=== PATIENT | male | born 1990 | race American Indian/Alaskan Native ===

== ENCOUNTER 2021-08-24 11:57 | Inpatient (IN) | payer SELFPAY ==
--- NOTE | 2021-08-24 12:16 | Emergency Department Report ---
HPI - General Chief Complaint: Cardiac Arrest/CPR Time Seen by Provider: 08/24/21 12:05 - HPI HPI: Room 18 The patient is a 31-year-old male present with a chief complaint of cardiac arrest. Per EMS the patient exited his room and was witnessed to have quick jerking motions and then collapsed to the ground. EMS was called and responded found the patient unresponsive and in asystole. ACLS protocols were initiated the patient was intubated. EMS reports administering 3 rounds of epinephrine, 1 round of sodium bicarb and defibrillation x1 when the patient entered V. tach. There was return of spontaneous circulation prior to arrival in the ED. Per EMS the patient's Accu-Chek read "high" ED Past Medical Hx - Past Medical History Hx Hypertension: Yes Hx Diabetes: Yes Hx Renal Disease: Yes (ESRD) - Surgical History Additional Surgical History: Right chest Vas-Cath - Family History Family history: no significant - Social History Smoking Status: Unknown if ever smoked Substance Use Type: None ED Review of Systems ROS: Stated complaint: CARDIAC ARREST Other details as noted in HPI Comment: Unobtainable due to pts medical conditions Physical Exam - Physical Exam Vital Signs: Vital Signs 08/24/21 12:08 Pulse Rate 98 H Respiratory 16 Rate Blood Pressure 194/100 [Right] O2 Sat by Pulse 100 Oximetry Physical Exam: GENERAL: The patient is well-developed well-nourished male lying on stretcher unresponsive being bagged via ET tube. [] HEENT: Normocephalic. Atraumatic. Pupils 6 to 5 mm bilaterally NECK: Supple. Trachea midline CHEST/LUNGS: Clear to auscultation. There is no respiratory distress noted. Vas-Cath right chest HEART/CARDIOVASCULAR: Regular. There is no tachycardia. There is no gallop rub or murmur. ABDOMEN: Abdomen is soft, nontender. Patient has normal bowel sounds. There is no abdominal distention. SKIN: There is no rash. There is no edema. There is no diaphoresis. NEURO: GCS 3 T MUSCULOSKELETAL: There is no evidence of acute injury. ED Course Vital Signs 08/24/21 12:08 Pulse Rate 98 H Respiratory 16 Rate Blood Pressure 194/100 [Right] O2 Sat by Pulse 100 Oximetry ED Medical Decision Making - Lab Data Result diagrams: 08/24/21 14:42 08/24/21 14:42 - EKG Data -: EKG Interpreted by Me EKG shows normal: sinus rhythm Rate: tachycardia (101 bpm) - EKG Data When compared to previous EKG there are: previous EKG unavailable Interpretation: nonspecific ST-T wave dylan (ST depression in leads V5, V6. T wave inversion in leads I, aVL, V6) - Radiology Data Radiology results: report reviewed (CT head, chest x-ray), image reviewed (CT head, chest x-ray) interpreted by me: Chest x-ray-ET tube in appropriate position. No definite focal infiltrates. No pneumothorax [facility] [address] [place] [address] Cat Scan Report Signed Patient: NORA BUSCH MR#: [id number] 5 : 1990 Acct:[id number] Age/Sex: 31 / M ADM Date: 08/24/21 Loc: ED Attending Dr: Ordering Physician: DAINA MARSH MD Date of Service: 08/24/21 Procedure(s): CT head/brain wo con Accession Number(s): [id number] cc: DAINA MARSH MD CT HEAD WITHOUT CONTRAST INDICATION / CLINICAL INFORMATION: Status post collapse and cardiac arrest. TECHNIQUE: Axial imaging performed from the skull apex through the skull base without the use of contrast. Sagittal and coronal reformatted images. All CT scans at this location are performed using CT dose reduction for ALARA by means of automated exposure control. COMPARISON: None available. FINDINGS: CEREBRAL PARENCHYMA: No significant abnormality. No acute territorial infarct. No convincing findings of diffuse anoxic injury on noncontrast CT. HEMORRHAGE: None. EXTRA-AXIAL SPACES: Normal in size and morphology for the patient's age. VENTRICULAR SYSTEM: Normal in size and morphology for the patient's age. MIDLINE SHIFT OR HERNIATION: None. CEREBELLUM / BRAINSTEM: No significant abnormality. CALVARIUM: No significant abnormality. ORBITS: Normal as visualized. PARANASAL SINUSES / MASTOID AIR CELLS: Normal as visualized. SOFT TISSUES of HEAD: No significant abnormality. ADDITIONAL FINDINGS: None. IMPRESSION: No acute intracranial abnormality. If further evaluation is needed, MRI could be obtained. Signer Name: Matt Hood Jr, MD Signed: 08/24/2021 12:46 PM Workstation Name: [id number] Transcribed By: TTR Dictated By: MATT HOOD JR, MD Electronically Authenticated By: MATT HOOD JR, MD Signed Date/Time: 08/24/21 1246 DD/ 1245 TD/TT: Print Cancel [facility] [address] [place] [address] XRay Report Signed Patient: NORA BUSCH MR#: [id number] 5 : 1990 Acct:[id number] Age/Sex: 31 / M ADM Date: 08/24/21 Loc: ED Attending Dr: Ordering Physician: DAINA MARSH MD Date of Service: 08/24/21 Procedure(s): XR chest 1V ap Accession Number(s): [id number] cc: DAINA MARSH MD Fluoro Time In Minutes: CHEST 1 VIEW INDICATION: Cardiac arrest status post intubation. COMPARISON: None FINDINGS: SUPPORT DEVICES: Endotracheal tube just below the level the clavicles and right IJ PermCath with tip in the mid right atrium. HEART: Mild cardiomegaly. LUNGS/PLEURA: Minimal edema noted with no consolidation, effusion, or pneumothorax. ADDITIONAL FINDINGS: None. IMPRESSION: 1. Lung findings and support devices as above. Signer Name: Yoshi Cha MD Signed: 08/24/2021 1:10 PM Workstation Name: [id number] Transcribed By: JOSELITO Dict ated By: Yoshi Cha MD Electronically Authenticated By: Yoshi Cha MD Signed Date/Time: 08/24/21 1310 DD/ 1309 TD/TT: Print Cancel - Differential Diagnosis Cardiac arrest Critical care attestation.: If time is entered above; I have spent that time in minutes in the direct care of this critically ill patient, excluding procedure time. ED Disposition Clinical Impression: Cardiac arrest, DKA (diabetic ketoacidosis), Rhabdomyolysis Disposition: ADMITTED INPATIENT Is pt being admited?: Yes Does the pt Need Aspirin: Yes Condition: Serious Instructions: Diabetic Ketoacidosis (ED) Referrals: PRIMARY CARE, [Primary Care Provider] - 3-5 Days Time of Disposition: 15:36 (Hospitalist called (Dr. Serra))
--- NOTE | 2021-08-24 12:50 | Cat Scan Report ---
CT HEAD WITHOUT CONTRAST INDICATION / CLINICAL INFORMATION: Status post collapse and cardiac arrest. TECHNIQUE: Axial imaging performed from the skull apex through the skull base without the use of cont rast. Sagittal and coronal reformatted images. All CT scans at this location are performed using CT dose reduction for ALARA by means of automated exposure control. COMPARISON: None available. FINDINGS: CEREBRAL PARENCHYMA: No significant abnormality. No acute territorial infarct. No convincing findings of diffuse anoxic injury on noncontrast CT. HEMORRHAGE: None. EXTRA-AXIAL SPACES: Normal in size and morphology for the patient's age. VENTRICULAR SYSTEM: Normal in size and morphology for the patient's age. MIDLINE SHIFT OR HERNIATION: None. CEREBELLUM / BRAINSTEM: No significant abnormality. CALVARIUM: No significant abnormality. ORBITS: Normal as visualized. PARANASAL SINUSES / MASTOID AIR CELLS: Normal as visualized. SOFT TISSUES of HEAD: No significant abnormality. ADDITIONAL FINDINGS: None. IMPRESSION: No acute intracranial abnormality. If further evaluation is needed, MRI could be obtained. Signer Name: Matt Hood Jr, MD Signed: 08/24/2021 12:46 PM Workstation Name: [id number]
--- NOTE | 2021-08-24 13:14 | XRay Report ---
CHEST 1 VIEW INDICATION: Cardiac arrest status post intubation. COMPARISON: None FINDINGS: SUPPORT DEVICES: Endotracheal tube just below the level the clavicles and right IJ PermCath with tip in the mid right atrium. HEART: Mild cardiomegaly. LUNGS/PLEURA: Minimal edema noted with no consolidation, effusion, or pneumothorax. ADDITIONAL FINDINGS: None. IMPRESSION: 1. Lung findings and support devices as above. Signer Name: Yoshi Cha MD Signed: 08/24/2021 1:10 PM Workstation Name: [id number]
[2021-08-24] MEDS: NORepinephrine/NS 8 MG-250 ML 8 MG/250 ML INFUS..BTL IV SCH (14:06)
[2021-08-24] MEDS ORDERED: DOPamine 800 MG/D5W 250ML 800 MG/250 ML BAG IV ONE (14:57)
[2021-08-24 15:03] LABS: Mean Corpuscular HGB Conc 27 % (32-34); Mean Corpuscular Volume 98 fl (84-94); Platelet Count 270 K/mm3 (140-440); Red Blood Count 4.15 M/mm3 (3.65-5.03); Red Cell Distribution Width 17.3 % (13.2-15.2)
[2021-08-24 15:14] LABS: Hemoglobin 10.9 gm/dl (11.8-15.2)
[2021-08-24 15:15] LABS: Hematocrit 40.6 % (35.5-45.6)
[2021-08-24 15:19] LABS: Albumin 2.9 g/dL (3.9-5); Calcium 7.6 mg/dL (8.4-10.2); Creatine Kinase MB 12.4 ng/mL (0.0-4.0)
[2021-08-24] MEDS ORDERED: PIPERACIL-TAZO 2.25 GM/50 ML 2.25 GM/50 ML BAG IV ONE (15:27)
[2021-08-24 15:31] LABS: Free T4 (Free Thyroxine) 1.35 ng/dL (0.76-1.46)
[2021-08-24] MEDS ORDERED: ASPIRIN 300 MG RECT SUPP PR ONE (15:32)
[2021-08-24 16:02] LABS: Chol/HDL Ratio 3.42 %
[2021-08-24 16:28] LABS: ABG Methemoglobin 0.6 % (0.0-1.5); ABG Oxygen Saturation 99.7 % (95.0-99.0)
[2021-08-24] MEDS: INSULIN REGULAR, HUMAN 100 UNITS in SODIUM CHLORIDE 0.9% 99 ML IV SCH ×2 (16:33→23:11)
[2021-08-24 16:36] LABS: ABG Base Excess -17.2 mmol/L (-2.0-3.0); ABG HCO3 10.8 mmol/L (20.0-26.0); ABG PCO2 33.3 mm Hg
[2021-08-24 16:40] LABS: Calcium 7.9 mg/dL (8.4-10.2)
[2021-08-24 16:47] LABS: ABG PH 7.128 pH Units (7.350-7.450); ABG PO2 301.3 mm Hg (80.0-90.0)
[2021-08-24 18:45] LABS: Band Neutrophils # (Manual) 0.6 K/mm3; Eosinophils % (Manual) 0 % (0.0-4.3); Myelocytes # (Manual) 0.2 K/mm3; Total Cells Counted 100
[2021-08-24 18:46] LABS: Burr Cells 1+; Platelet Estimate Consistent w Auto
[2021-08-24] MEDS ORDERED: EPINEPHrine 1 MG/10 ML SYRINGE ONE (19:00)
[2021-08-24] MEDS ORDERED: DOPamine DRIP 800 MG/D5W 250ML PreMix IV ONE (19:00)
[2021-08-24 19:38] LABS: INR 1.06 (0.87-1.13)
[2021-08-24 19:39] LABS: Partial Thromboplastin Time 28.6 Sec. (24.2-36.6)
--- NOTE | 2021-08-24 19:40 | History and Physical Report ---
History of Present Illness Date of examination: 08/24/21 Date of admission: 08/24/2021 Chief complaint: S/p cardiac arrest History of present illness: The patient is a 31-year-old male present with a chief complaint of cardiac arrest. Per EMS the patient exited his room and was witnessed to have quick jerking motions and then collapsed to the ground. EMS was called and responded found the patient unresponsive and in asystole. ACLS protocols were initiated the patient was intubated. EMS reports administering 3 rounds of epinephrine, 1 round of sodium bicarb and defibrillation x1 when the patient entered V. tach. There was return of spontaneous circulation prior to arrival in the ED. Per EMS the patient's Accu-Chek read "high" - Past Medical History --Hypertension: Yes --Diabetes: Yes --Renal Disease: Yes (ESRD) - Surgical History Additional Surgical History: Right chest Vas-Cath - Family History Family history: no significant - Social History Smoking Status: Unknown if ever smoked Substance Use Type: None Review of Systems ROS: Stated complaint: CARDIAC ARREST Other details as noted in HPI Comment: Unobtainable due to pts medical conditions Medications and Allergies Allergies Allergy/AdvReac Type Severity Reaction Status Date / Time codeine Allergy Unknown Unknown Verified 08/24/21 16:01 Active Meds: Active Medications NORepinephrine/NS 8 MG-250 ML (Norepinephrine/Ns 8 Mg-250 Ml (Double Conc)) 8 mg in 250 mls @ 11.25 mls/hr IV TITRATE MARCIA; Protocol Last Titration: 08/24/21 17:39 Dose: Infused Dopamine HCl/Dextrose (Dopamine 800 Mg/D5w 250ml) 800 mg in 250 mls @ 2.296 mls/hr IV TITR ONE; Protocol Stop: 08/29/21 03:50 Last Titration: 08/24/21 17:43 Dose: Infused Insulin Human Regular 100 (units/ Sodium Chloride) 100 mls @ 8 mls/hr IV TITR MARCIA; Protocol Last Titration: 08/24/21 18:37 Dose: 8 units/hr, 8 mls/hr Exam - Physical Exam Narrative exam: Patient intubated and on ventilator - Constitutional Vitals: Temp Pulse Resp BP Pulse Ox 94.9 F L 81 6 L 171/98 100 08/24/21 14:23 08/24/21 18:15 08/24/21 18:15 08/24/21 18:15 08/24/21 18:15 General appearance: Present: severe distress, well-nourished - EENT Eyes: Present: PERRL ENT: hearing intact, clear oral mucosa - Neck Neck: Present: supple, normal ROM - Respiratory Respiratory effort: normal Respiratory: bilateral: CTA - Cardiovascular Heart rate: 78 Rhythm: regular Heart Sounds: Present: S1 & S2. Absent: rub, click - Extremities Extremities: pulses symmetrical, No edema Peripheral Pulses: within normal limits - Abdominal General gastrointestinal: Present: soft, non-tender, non-distended, normal bowel sounds Male genitourinary: Present: normal - Integumentary Integumentary: Present: clear, warm, dry - Musculoskeletal Musculoskeletal: generalized weakness - Psychiatric Psychiatric: other (Patient intubated) - Neurologic Neurologic: other (Patient intubated) - Allied Health Allied health notes reviewed: nursing, case management HEART Score - HEART Score Troponin: Troponin T 0.215 ng/mL (0.00-0.029) H* 08/24/21 14:42 Results - Labs CBC & Chem 7: 08/25/21 03:53 08/25/21 03:53 Labs: Laboratory Last Values WBC 21.5 K/mm3 (4.5-11.0) H 08/24/21 14:42 RBC 4.15 M/mm3 (3.65-5.03) 08/24/21 14:42 Hgb 10.9 gm/dl (11.8-15.2) L 08/24/21 14:42 Hct 40.6 % (35.5-45.6) 08/24/21 14:42 MCV 98 fl (84-94) H 08/24/21 14:42 MCH 26 pg (28-32) L 08/24/21 14:42 MCHC 27 % (32-34) L 08/24/21 14:42 RDW 17.3 % (13.2-15.2) H 08/24/21 14:42 Plt Count 270 K/mm3 (140-440) 08/24/21 14:42 Add Manual Diff Complete 08/24/21 14:42 Total Counted 100 08/24/21 14:42 Seg Neuts % (Manual) 90.0 % (40.0-70.0) H 08/24/21 14:42 Band Neutrophils % 3.0 % 08/24/21 14:42 Lymphocytes % (Manual) 4.0 % (13.4-35.0) L 08/24/21 14:42 Reactive Lymphs % (Man) 0 % 08/24/21 14:42 Monocytes % (Manual) 1.0 % (0.0-7.3) 08/24/21 14:42 Eosinophils % (Manual) 0 % (0.0-4.3) 08/24/21 14:42 Basophils % (Manual) 1.0 % (0.0-1.8) 08/24/21 14:42 Metamyelocytes % 0 % 08/24/21 14:42 Myelocytes % 1.0 % 08/24/21 14:42 Promyelocytes % 0 % 08/24/21 14:42 Blast Cells % 0 % 08/24/21 14:42 Nucleated RBC % Not Reportable 08/24/21 14:42 Seg Neutrophils # Man 19.4 K/mm3 (1.8-7.7) H 08/24/21 14:42 Band Neutrophils # 0.6 K/mm3 08/24/21 14:42 Lymphocytes # (Manual) 0.9 K/mm3 (1.2-5.4) L 08/24/21 14:42 Abs React Lymphs (Man) 0.0 K/mm3 08/24/21 14:42 Monocytes # (Manual) 0.2 K/mm3 (0.0-0.8) 08/24/21 14:42 Eosinophils # (Manual) 0.0 K/mm3 (0.0-0.4) 08/24/21 14:42 Basophils # (Manual) 0.2 K/mm3 (0.0-0.1) H 08/24/21 14:42 Metamyelocytes # 0.0 K/mm3 08/24/21 14:42 Myelocytes # 0.2 K/mm3 08/24/21 14:42 Promyelocytes # 0.0 K/mm3 08/24/21 14:42 Blast Cells # 0.0 K/mm3 08/24/21 14:42 WBC Morphology Not Reportable 08/24/21 14:42 Hypersegmented Neuts Not Reportable 08/24/21 14:42 Hyposegmented Neuts Not Reportable 08/24/21 14:42 Hypogranular Neuts Not Reportable 08/24/21 14:42 Smudge Cells Not Reportable 08/24/21 14:42 Toxic Granulation Not Reportable 08/24/21 14:42 Toxic Vacuolation Not Reportable 08/24/21 14:42 Dohle Bodies Not Reportable 08/24/21 14:42 Pelger-Huet Anomaly Not Reportable 08/24/21 14:42 Joseluis Rods Not Reportable 08/24/21 14:42 Platelet Estimate Consistent w auto 08/24/21 14:42 Clumped Platelets Not Reportable 08/24/21 14:42 Plt Clumps, EDTA Not Reportable 08/24/21 14:42 Large Platelets Not Reportable 08/24/21 14:42 Giant Platelets Not Reportable 08/24/21 14:42 Platelet Satelliting Not Reportable 08/24/21 14:42 Plt Morphology Comment Not Reportable 08/24/21 14:42 RBC Morphology Not Reportable 08/24/21 14:42 Dimorphic RBCs Not Reportable 08/24/21 14:42 Polychromasia Not Reportable 08/24/21 14:42 Hypochromasia Not Reportable 08/24/21 14:42 Poikilocytosis Not Reportable 08/24/21 14:42 Anisocytosis Not Reportable 08/24/21 14:42 Microcytosis Not Reportable 08/24/21 14:42 Macrocytosis Not Reportable 08/24/21 14:42 Spherocytes Not Reportable 08/24/21 14:42 Pappenheimer Bodies Not Reportable 08/24/21 14:42 Sickle Cells Not Reportable 08/24/21 14:42 Target Cells Not Reportable 08/24/21 14:42 Tear Drop Cells Not Reportable 08/24/21 14:42 Ovalocytes Not Reportable 08/24/21 14:42 Helmet Cells Not Reportable 08/24/21 14:42 [place] Bodies Not Reportable 08/24/21 14:42 Excel Rings Not Reportable 08/24/21 14:42 Kris Cells 1+ 08/24/21 14:42 Bite Cells Not Reportable 08/24/21 14:42 Crenated Cell Not Reportable 08/24/21 14:42 Elliptocytes Not Reportable 08/24/21 14:42 Acanthocytes (Spur) Not Reportable 08/24/21 14:42 Rouleaux Not Reportable 08/24/21 14:42 Hemoglobin C Crystals Not Reportable 08/24/21 14:42 Schistocytes Not Reportable 08/24/21 14:42 Malaria parasites Not Reportable 08/24/21 14:42 Marv Bodies Not Reportable 08/24/21 14:42 Hem Pathologist Commnt No 08/24/21 14:42 ABG pH 7.128 pH Units (7.350-7.450) L* 08/24/21 16:04 ABG pCO2 33.3 mm Hg 08/24/21 16:04 ABG pO2 301.3 mm Hg (80.0-90.0) H 08/24/21 16:04 ABG HCO3 10.8 mmol/L (20.0-26.0) L 08/24/21 16:04 ABG O2 Saturation 99.7 % (95.0-99.0) H 08/24/21 16:04 ABG O2 Content 16.3 (0.0-44) 08/24/21 16:04 ABG Base Excess -17.2 mmol/L (-2.0-3.0) L 08/24/21 16:04 ABG Hemoglobin 11.8 gm/dl (14.0-18.0) L 08/24/21 16:04 ABG Carboxyhemoglobin 1.4 % (0.0-5.0) 08/24/21 16:04 ABG Methemoglobin 0.6 % (0.0-1.5) 08/24/21 16:04 VBG pH 7.037 (7.320-7.420) L* 08/24/21 14:42 Oxyhemoglobin 97.7 % (95.0-99.0) 08/24/21 16:04 FiO2 100 % 08/24/21 16:04 Sodium 126 mmol/L (137-145) L 08/24/21 16:07 Potassium 5.1 mmol/L (3.6-5.0) H 08/24/21 16:07 Chloride 79.2 mmol/L (98-107) L 08/24/21 16:07 Carbon Dioxide 9 mmol/L (22-30) L* 08/24/21 16:07 Anion Gap 43 mmol/L 08/24/21 16:07 BUN 21 mg/dL (9-20) H 08/24/21 16:07 Creatinine 5.0 mg/dL (0.8-1.3) H 08/24/21 16:07 Estimated GFR 17 ml/min 08/24/21 16:07 BUN/Creatinine Ratio 4 % 08/24/21 16:07 Glucose 1217 mg/dL (75-100) H* 08/24/21 16:07 POC Glucose > 600 mg/dL (70-105) H 08/24/21 18:33 Calcium 7.9 mg/dL (8.4-10.2) L 08/24/21 16:07 Phosphorus 9.20 mg/dL (2.5-4.5) H 08/24/21 16:07 Magnesium 2.50 mg/dL (1.7-2.3) H 08/24/21 14:42 Total Bilirubin 0.60 mg/dL (0.1-1.2) 08/24/21 14:42 AST 138 units/L (5-40) H 08/24/21 14:42 ALT 52 units/L (7-56) 08/24/21 14:42 Alkaline Phosphatase 266 units/L (35-129) H 08/24/21 14:42 Total Creatine Kinase 1272 units/L (55-170) H 08/24/21 14:42 CK-MB (CK-2) 12.4 ng/mL (0.0-4.0) H 08/24/21 14:42 CK-MB (CK-2) Rel Index 0.9 (0-4) 08/24/21 14:42 Troponin T 0.215 ng/mL (0.00-0.029) H* 08/24/21 14:42 Total Protein 5.8 g/dL (6.3-8.2) L 08/24/21 14:42 Albumin 2.9 g/dL (3.9-5) L 08/24/21 14:42 Albumin/Globulin Ratio 1.0 % 08/24/21 14:42 Triglycerides 196 mg/dL (2-149) H 08/24/21 14:42 Cholesterol 209 mg/dL (50-199) H 08/24/21 14:42 LDL Cholesterol Direct 118 mg/dL (50-130) 08/24/21 14:42 HDL Cholesterol 61 mg/dL (40-59) H 08/24/21 14:42 Cholesterol/HDL Ratio 3.42 % 08/24/21 14:42 TSH 12.910 mlU/mL (0.270-4.200) H 08/24/21 14:42 Free T4 1.35 ng/dL (0.76-1.46) 08/24/21 14:42 Assessment and Plan Assessment and plan: Critical care statement The high probability OF a clinically significant sudden or life-threatening deterioration of the cardiorespiratory system and endocrine system required my full and direct attention, intervention and postoperative management. The aggregate critical care time was 40 minutes. The time is in addition to time spent performing reported procedures but includes the followin: Data review and interpretation 2: Patient assessment and monitoring of vital signs 3: Documentation 4:: Medication orders and management Advance Directives: Yes (Full code) VTE prophylaxis?: Chemical Plan of care discussed with patient/family: Yes - Patient Problems (1) Cardiac arrest Current Visit: Yes Status: Acute Plan to address problem: Patient arrived Anoxic encephalopathy is a possibility Continue vent support Data Integration Architect consult (2) Acute respiratory failure with hypoxia Current Visit: Yes Status: Acute Plan to address problem: Continue vent support and antibiotics and duo nebs and steroids (3) DKA (diabetic ketoacidosis) Current Visit: Yes Status: Acute Qualifiers: Diabetes mellitus type: type 1 Plan to address problem: DKA protocol IV insulin IV fluids Supplement potassium as necessary (4) Hyponatremia Current Visit: Yes Status: Acute Plan to address problem: Secondary to high blood glucose levels Pseudohyponatremia (5) Metabolic acidosis Current Visit: Yes Status: Acute Plan to address problem: Secondary to DKA Sodium bicarbonate as necessary (6) Elevated TSH Current Visit: Yes Status: Acute Plan to address problem: Thyroid profile requested (7) DVT prophylaxis Current Visit: Yes Status: Acute Plan to address problem: On anticoagulation GI prophylaxis
[2021-08-24] MEDS ORDERED: MORPHINE 2 MG/1 ML INJ IV PRN (19:41)
[2021-08-24] MEDS ORDERED: HYDROmorphone 1 MG/1 ML INJ IV PRN (19:41)
[2021-08-24] MEDS ORDERED: ONDANSETRON 4 MG/2 ML INJ IV PRN (19:41)
[2021-08-24] MEDS ORDERED: ACETAMINOPHEN 325 MG TAB PO PRN (19:41)
[2021-08-24] MEDS ORDERED: SODIUM CHLORIDE 0.9% 1000 ML 1,000 ML IV SCH (19:45)
[2021-08-24 19:48] LABS: Calcium 7.7 mg/dL (8.4-10.2)
[2021-08-24] MEDS ORDERED: HEPARIN 5,000 UNIT/1 ML VIAL SUB-Q SCH (22:00)
[2021-08-25 00:32] LABS: INR 1.12 (0.87-1.13)
[2021-08-25 00:33] LABS: Partial Thromboplastin Time 29.2 Sec. (24.2-36.6)
[2021-08-25 00:46] LABS: Creatine Kinase MB 27.1 ng/mL (0.0-4.0)
[2021-08-25 00:47] LABS: Calcium 7.7 mg/dL (8.4-10.2)
[2021-08-25 04:23] LABS: Hematocrit 32.7 % (35.5-45.6); Hemoglobin 10.3 gm/dl (11.8-15.2); Mean Corpuscular HGB Conc 31 % (32-34); Mean Corpuscular Volume 87 fl (84-94); Platelet Count 192 K/mm3 (140-440); Red Blood Count 3.75 M/mm3 (3.65-5.03); Red Cell Distribution Width 16.7 % (13.2-15.2)
[2021-08-25 04:39] LABS: Creatine Kinase MB 33.5 ng/mL (0.0-4.0)
[2021-08-25 04:44] LABS: Albumin 2.7 g/dL (3.9-5); Calcium 7.8 mg/dL (8.4-10.2)
[2021-08-25 05:07] LABS: ABG Base Excess -2.2 mmol/L (-2.0-3.0); ABG HCO3 20.9 mmol/L (20.0-26.0); ABG Methemoglobin 0.4 % (0.0-1.5); ABG Oxygen Saturation 98.2 % (95.0-99.0); ABG PH 7.461 pH Units (7.350-7.450)
[2021-08-25 05:51] LABS: Basophils % (Manual) 0 % (0.0-1.8); Eosinophils % (Manual) 0 % (0.0-4.3); Total Cells Counted 100
[2021-08-25 05:54] LABS: Anisocytosis 1+; Platelet Estimate Consistent w Auto
[2021-08-25 08:19] LABS: Calcium 7.9 mg/dL (8.4-10.2)
--- NOTE | 2021-08-25 08:34 | Progress Note ---
Assessment and Plan Assessment and plan: History of present illness: The patient is a 31-year-old male present with a chief complaint of cardiac arrest. Per EMS the patient exited his room and was witnessed to have quick jerking motions and then collapsed to the ground. EMS was called and responded found the patient unresponsive and in asystole. ACLS protocols were initiated the patient was intubated. EMS reports administering 3 rounds of epinephrine, 1 round of sodium bicarb and defibrillation x1 when the patient entered V. tach. There was return of spontaneous circulation prior to arrival in the ED. Per EMS the patient's Accu-Chek read "high" Admitted to ICU for acute hypoxic respiratory failure, cardiac arrest, DKA. NOK: Rupal Castillo [phone] (spouse) Hospital course: 08/25: Requiring MV support. mental status of concern after suspected prolonged down time. Last BG in 400's. D/w RN to aggressively replace K, once K > 3.3, can restart IV insulin. Volume depleted, 3 L NS ordered. Continue 1/2NS w/K infusion. Spoke with Rupal Castillo at length of clinical progress and plan for today. Assessment and Plan #Cardiac arrest - Unclear inciting event...possibly hypokalemia and DKA. - Patient was pulseless upon ems arrival and had coded multiple times in ED per reports. - Anoxic encephalopathy is a possibility- suspect prolonged downtime - Elevated troponin, likely from CPR, multiple arrests - ECHO ordered - UDS pending - Continue vent support - [employer] consult - Cardiology consultation #Acute respiratory failure with hypoxia Continue vent support and antibiotics and duo nebs and steroids CXR normal study PCCM following #Diabetic ketoacidosis - ph: 7.128, A, BG >1000 on admission, - DKA protocol: IV insulin, IVF. - NPO until AG closes - once AG closed (< 14), can start lantus 10 mg subq. Please run insulin gtt 1hr after lantus admin. - accuchecks q1 hr until AG closed - BMP q4hr until AG closed #Hypokalemia - 2.5 currently - continue aggressive replacement #Acute encephalopthy - discontinue sedation. - concern with brain anoxia - admission CT brain: no intracranial abnl - repeat CT brain for tomorrow pending - UDS pending #ESRD on HD - cr : 5.3 on admission labs - per reports had just started HD in may - strict I/O via almeida - avoid nephrotoxic agents, renal adjustments of meds. - nephrology consulted. #Hyponatremia Secondary to high blood glucose levels and volume depletion - Pseudohyponatremia - IVF bolus x 3 #Metabolic acidosis Multifactorial, respiratory failure + DKA Sodium bicarbonate as necessary (6) Elevated TSH Thyroid profile requested (7) DVT prophylaxis On anticoagulation GI prophylaxis The high probability of a clinically significant, sudden or life threatening deterioration of the [multi] system(s) required my full and direct attention, intervention and personal management. The aggregate critical care time was [90] minutes. This time is in addition to time spent performing reported procedures but includes the following: [x] Data Review and interpretation [x] Patient assessment and monitoring of vital signs [x] Documentation [x] Medication orders and management History Interval history: Intubated and sedated. No neurological response off of sedation. Hospitalist Physical - Physical exam Narrative exam: Physical Exam: VITAL SIGNS: Reviewed. GENERAL: The patient appears normally developed, Vital signs as documented. intubated and sedated. HEAD: No signs of head trauma. EYES: Pupils are equal. Extraocular motions intact. EARS: Hearing grossly intact. MOUTH: Oropharynx is normal. NECK: No adenopathy, no JVD. CHEST: Chest with clear breath sounds bilaterally. No wheezes, rales, or rhonchi. CARDIAC: Regular rate and rhythm. S1 and S2, without murmurs, gallops, or rubs. VASCULAR: No Edema. Peripheral pulses normal and equal in all extremities. ABDOMEN: Soft, non tender and non distended. No rebound or guarding, and no masses palpated. Bowel Sounds normal. MUSCULOSKELETAL: no obvious abnormalities noted. NEUROLOGIC EXAM: sedated PSYCHIATRIC: sedated SKIN: detail exam as documented in skin assessment - Constitutional Vitals: Temp Pulse Resp BP Pulse Ox 98.8 F 57 L 20 149/92 100 08/25/21 05:00 08/25/21 05:16 08/25/21 05:16 08/25/21 05:16 08/25/21 05:16 General appearance: Present: severe distress, well-nourished HEART Score - HEART Score Troponin: Troponin T 0.356 ng/mL (0.00-0.029) H* 08/25/21 03:53 Results - Labs CBC & Chem 7: 08/25/21 03:53 08/25/21 07:47 Labs: Laboratory Last Values WBC 11.4 K/mm3 (4.5-11.0) H 08/25/21 03:53 RBC 3.75 M/mm3 (3.65-5.03) 08/25/21 03:53 Hgb 10.3 gm/dl (11.8-15.2) L 08/25/21 03:53 Hct 32.7 % (35.5-45.6) L D 08/25/21 03:53 MCV 87 fl (84-94) 08/25/21 03:53 MCH 27 pg (28-32) L 08/25/21 03:53 MCHC 31 % (32-34) L 08/25/21 03:53 RDW 16.7 % (13.2-15.2) H 08/25/21 03:53 Plt Count 192 K/mm3 (140-440) 08/25/21 03:53 Add Manual Diff Complete 08/25/21 03:53 Total Counted 100 08/25/21 03:53 Seg Neutrophils % [employer] Operator 08/25/21 03:53 Seg Neuts % (Manual) 87.0 % (40.0-70.0) H 08/25/21 03:53 Band Neutrophils % 0 % 08/25/21 03:53 Lymphocytes % (Manual) 9.0 % (13.4-35.0) L 08/25/21 03:53 Reactive Lymphs % (Man) 0 % 08/25/21 03:53 Monocytes % (Manual) 4.0 % (0.0-7.3) 08/25/21 03:53 Eosinophils % (Manual) 0 % (0.0-4.3) 08/25/21 03:53 Basophils % (Manual) 0 % (0.0-1.8) 08/25/21 03:53 Metamyelocytes % 0 % 08/25/21 03:53 Myelocytes % 0 % 08/25/21 03:53 Promyelocytes % 0 % 08/25/21 03:53 Blast Cells % 0 % 08/25/21 03:53 Nucleated RBC % Not Reportable 08/25/21 03:53 Seg Neutrophils # Man 9.9 K/mm3 (1.8-7.7) H 08/25/21 03:53 Band Neutrophils # 0.0 K/mm3 08/25/21 03:53 Lymphocytes # (Manual) 1.0 K/mm3 (1.2-5.4) L 08/25/21 03:53 Abs React Lymphs (Man) 0.0 K/mm3 08/25/21 03:53 Monocytes # (Manual) 0.5 K/mm3 (0.0-0.8) 08/25/21 03:53 Eosinophils # (Manual) 0.0 K/mm3 (0.0-0.4) 08/25/21 03:53 Basophils # (Manual) 0.0 K/mm3 (0.0-0.1) 08/25/21 03:53 Metamyelocytes # 0.0 K/mm3 08/25/21 03:53 Myelocytes # 0.0 K/mm3 08/25/21 03:53 Promyelocytes # 0.0 K/mm3 08/25/21 03:53 Blast Cells # 0.0 K/mm3 08/25/21 03:53 WBC Morphology Not Reportable 08/25/21 03:53 Hypersegmented Neuts Not Reportable 08/25/21 03:53 Hyposegmented Neuts Not Reportable 08/25/21 03:53 Hypogranular Neuts Not Reportable 08/25/21 03:53 Smudge Cells Not Reportable 08/25/21 03:53 Toxic Granulation Not Reportable 08/25/21 03:53 Toxic Vacuolation Not Reportable 08/25/21 03:53 Dohle Bodies Not Reportable 08/25/21 03:53 Pelger-Huet Anomaly Not Reportable 08/25/21 03:53 Joseluis Rods Not Reportable 08/25/21 03:53 Platelet Estimate Consistent w auto 08/25/21 03:53 Clumped Platelets Not Reportable 08/25/21 03:53 Plt Clumps, EDTA Not Reportable 08/25/21 03:53 Large Platelets Not Reportable 08/25/21 03:53 Giant Platelets Not Reportable 08/25/21 03:53 Platelet Satelliting Not Reportable 08/25/21 03:53 Plt Morphology Comment Not Reportable 08/25/21 03:53 RBC Morphology Not Reportable 08/25/21 03:53 Dimorphic RBCs Not Reportable 08/25/21 03:53 Polychromasia Not Reportable 08/25/21 03:53 Hypochromasia Not Reportable 08/25/21 03:53 Poikilocytosis Not Reportable 08/25/21 03:53 Anisocytosis 1+ 08/25/21 03:53 Microcytosis Not Reportable 08/25/21 03:53 Macrocytosis Not Reportable 08/25/21 03:53 Spherocytes Not Reportable 08/25/21 03:53 Pappenheimer Bodies Not Reportable 08/25/21 03:53 Sickle Cells Not Reportable 08/25/21 03:53 Target Cells Not Reportable 08/25/21 03:53 Tear Drop Cells Not Reportable 08/25/21 03:53 Ovalocytes Not Reportable 08/25/21 03:53 Helmet Cells Not Reportable 08/25/21 03:53 [place] Bodies Not Reportable 08/25/21 03:53 [place] Rings Not Reportable 08/25/21 03:53 Kris Cells Not Reportable 08/25/21 03:53 Bite Cells Not Reportable 08/25/21 03:53 Crenated Cell Not Reportable 08/25/21 03:53 Elliptocytes Not Reportable 08/25/21 03:53 Acanthocytes (Spur) Not Reportable 08/25/21 03:53 Rouleaux Not Reportable 08/25/21 03:53 Hemoglobin C Crystals Not Reportable 08/25/21 03:53 Schistocytes Not Reportable 08/25/21 03:53 Malaria parasites Not Reportable 08/25/21 03:53 Marv Bodies Not Reportable 08/25/21 03:53 Hem Pathologist Commnt No 08/25/21 03:53 PT 15.6 Sec. (12.2-14.9) H 08/24/21 23:55 INR 1.12 (0.87-1.13) 08/24/21 23:55 APTT 29.2 Sec. (24.2-36.6) 08/24/21 23:55 ABG pH 7.461 pH Units (7.350-7.450) H 08/25/21 04:52 ABG pCO2 30.0 mm Hg 08/25/21 04:52 ABG pO2 111.0 mm Hg (80.0-90.0) H 08/25/21 04:52 ABG HCO3 20.9 mmol/L (20.0-26.0) 08/25/21 04:52 ABG O2 Saturation 98.2 % (95.0-99.0) 08/25/21 04:52 ABG O2 Content 14.0 (0.0-44) 08/25/21 04:52 ABG Base Excess -2.2 mmol/L (-2.0-3.0) L 08/25/21 04:52 ABG Hemoglobin 10.2 gm/dl (14.0-18.0) L 08/25/21 04:52 ABG Carboxyhemoglobin 1.4 % (0.0-5.0) 08/25/21 04:52 ABG Methemoglobin 0.4 % (0.0-1.5) 08/25/21 04:52 VBG pH 7.037 (7.320-7.420) L* 08/24/21 14:42 Oxyhemoglobin 96.4 % (95.0-99.0) 08/25/21 04:52 FiO2 30 % 08/25/21 04:52 Sodium 130 mmol/L (137-145) L 08/25/21 07:47 Potassium 2.5 mmol/L (3.6-5.0) L* 08/25/21 07:47 Chloride 90.8 mmol/L (98-107) L 08/25/21 07:47 Carbon Dioxide 20 mmol/L (22-30) L 08/25/21 07:47 Anion Gap 22 mmol/L 08/25/21 07:47 BUN 24 mg/dL (9-20) H 08/25/21 07:47 Creatinine 5.3 mg/dL (0.8-1.3) H 08/25/21 07:47 Estimated GFR 15 ml/min 08/25/21 07:47 BUN/Creatinine Ratio 5 % 08/25/21 07:47 Glucose 662 mg/dL (75-100) H* 08/25/21 07:47 POC Glucose 551 mg/dL (70-105) H 08/25/21 07:59 Calcium 7.9 mg/dL (8.4-10.2) L 08/25/21 07:47 Phosphorus 9.20 mg/dL (2.5-4.5) H 08/24/21 16:07 Magnesium 2.50 mg/dL (1.7-2.3) H 08/24/21 14:42 Total Bilirubin 0.50 mg/dL (0.1-1.2) 08/25/21 03:53 AST 190 units/L (5-40) H 08/25/21 03:53 ALT 64 units/L (7-56) H 08/25/21 03:53 Alkaline Phosphatase 197 units/L (35-129) H 08/25/21 03:53 Total Creatine Kinase 7840 units/L (55-170) H 08/25/21 03:53 CK-MB (CK-2) 33.5 ng/mL (0.0-4.0) H 08/25/21 03:53 CK-MB (CK-2) Rel Index 0.4 (0-4) 08/25/21 03:53 Troponin T 0.356 ng/mL (0.00-0.029) H* 08/25/21 03:53 Total Protein 4.9 g/dL (6.3-8.2) L 08/25/21 03:53 Albumin 2.7 g/dL (3.9-5) L 08/25/21 03:53 Albumin/Globulin Ratio 1.2 % 08/25/21 03:53 Triglycerides 196 mg/dL (2-149) H 08/24/21 14:42 Cholesterol 209 mg/dL (50-199) H 08/24/21 14:42 LDL Cholesterol Direct 118 mg/dL (50-130) 08/24/21 14:42 HDL Cholesterol 61 mg/dL (40-59) H 08/24/21 14:42 Cholesterol/HDL Ratio 3.42 % 08/24/21 14:42 TSH 12.910 mlU/mL (0.270-4.200) H 08/24/21 14:42 Free T4 1.35 ng/dL (0.76-1.46) 08/24/21 14:42 Blood Type O POSITIVE 08/25/21 00:07 Antibody Screen Negative 08/25/21 00:07 Active Medications - Current Medications Current Medications: Generic Name Dose Route Start Last Admin Trade Name Freq PRN Reason Stop Dose Admin Acetaminophen 650 mg 08/24/21 19:41 Acetaminophen 325 Mg Tab PO Q4H PRN Pain MILD(1-3)/Fever >100.5/MENG Heparin Sodium (Porcine) 5,000 unit 08/24/21 22:00 Heparin 5,000 Unit/1 Ml Vial SUB-Q Q12HR MARCIA Hydromorphone HCl 0.5 mg 08/24/21 19:41 Hydromorphone 1 Mg/1 Ml Inj IV Q3H PRN Pain , Severe (7-10) NORepinephrine/NS 8 MG-250 ML 8 mg in 250 mls @ 11.25 mls/hr 08/24/21 14:00 08/24/21 17:39 Norepinephrine/Ns 8 Mg-250 Ml (Double Conc) IV Infused TITRATE MARCIA Titration Protocol 6 MCG/MIN Dopamine HCl/Dextrose 800 mg in 250 mls @ 2.296 mls/hr 08/24/21 14:57 08/24/21 17:43 Dopamine 800 Mg/D5w 250ml IV 08/29/21 03:50 Infused TITR ONE Titration Protocol 2 MCG/KG/MIN Insulin Human Regular 100 100 mls @ 8 mls/hr 08/24/21 16:00 08/25/21 08:07 units/ Sodium Chloride IV 8 units/hr TITR MARCIA 8 mls/hr Titration Protocol 8 UNITS/HR Sodium Chloride 1,000 mls @ 42 mls/hr 08/24/21 19:45 Nacl 0.9% 1000 Ml IV DIRECT MARCIA Potassium Chloride 10 meq in 100 mls @ 100 mls/hr 08/25/21 08:00 Kcl 10meq/100ml IV 08/25/21 11:59 Q1H MARCIA Morphine Sulfate 2 mg 08/24/21 19:41 Morphine 2 Mg/1 Ml Inj IV Q4H PRN Pain, Moderate (4-6) Ondansetron HCl 4 mg 08/24/21 19:41 Ondansetron 4 Mg/2 Ml Inj IV Q8H PRN Nausea And Vomiting Sodium Chloride 10 ml 08/24/21 22:00 Sodium Chloride 0.9% 10 Ml Flush Syringe IV BID MARCIA Sodium Chloride 10 ml 08/24/21 19:41 Sodium Chloride 0.9% 10 Ml Flush Syringe IV PRN PRN LINE FLUSH
[2021-08-25] MEDS: POTASSIUM CHLORIDE 10 MEQ 10 MEQ/100 ML BAG IV SCH ×4 (10:09→13:42)
[2021-08-25] MEDS: NORepinephrine/NS 8 MG-250 ML 8 MG/250 ML INFUS..BTL IV SCH (10:19)
[2021-08-25] MEDS ORDERED: SODIUM CHLORIDE 0.9% 1000 ML 1,000 ML IV ONE ×2 (10:46)
--- NOTE | 2021-08-25 11:17 | Consultation ---
History of Present Illness Consult date: 08/25/21 Requesting physician: YARED ZULUAGA Reason for consult: other (cardiac arrest, acute respiratory failure) History of present illness: 31 y/o male found down after witnessed arrest. Not sure if CPR was done prior to EMS arrival. EMS coded regained ROSC and then had multiple codes in the ED per report. Unresponsive and not on sedation. Per report just started HD in May. Remainder of the review is obtainable. Past History Past Medical History: ESRD Past Surgical History: Other (vascath placement) Social history: other (unable to obtain) Family history: other (unable to obtain) Medications and Allergies Allergies Allergy/AdvReac Type Severity Reaction Status Date / Time codeine Allergy Unknown Unknown Verified 08/24/21 16:01 Active Meds: Active Medications Acetaminophen (Acetaminophen 325 Mg Tab) 650 mg PO Q4H PRN PRN Reason: Pain MILD(1-3)/Fever >100.5/MENG Heparin Sodium (Porcine) (Heparin 5,000 Unit/1 Ml Vial) 5,000 unit SUB-Q Q12HR MARCIA Last Admin: 08/25/21 10:10 Dose: 5,000 unit Hydromorphone HCl (Hydromorphone 1 Mg/1 Ml Inj) 0.5 mg IV Q3H PRN PRN Reason: Pain , Severe (7-10) NORepinephrine/NS 8 MG-250 ML (Norepinephrine/Ns 8 Mg-250 Ml (Double Conc)) 8 mg in 250 mls @ 11.25 mls/hr IV TITRATE MARCIA; Protocol Last Titration: 08/25/21 10:36 Dose: 1 mcg/min, 1.875 mls/hr Dopamine HCl/Dextrose (Dopamine 800 Mg/D5w 250ml) 800 mg in 250 mls @ 2.296 mls/hr IV TITR ONE; Protocol Stop: 08/29/21 03:50 Last Titration: 08/24/21 17:43 Dose: Infused Insulin Human Regular 100 (units/ Sodium Chloride) 100 mls @ 8 mls/hr IV TITR MARCIA; Protocol Last Titration: 08/25/21 08:31 Dose: Infused Sodium Chloride (Nacl 0.9% 1000 Ml) 1,000 mls @ 42 mls/hr IV DIRECT MARCIA Potassium Chloride (Kcl 10meq/100ml) 10 meq in 100 mls @ 100 mls/hr IV Q1H MARCIA Stop: 08/25/21 11:59 Last Admin: 08/25/21 10:09 Dose: 100 mls/hr Potassium Chloride/Sodium Chloride (Ns 0.45/Kcl 20meq) 20 meq in 1,000 mls @ 250 mls/hr IV DIRECT MARCIA Sodium Chloride (Nacl 0.9% 1000 Ml) 1,000 mls @ 999 mls/hr IV BOLUS ONE Stop: 08/25/21 11:46 Sodium Chloride (Nacl 0.9% 1000 Ml) 1,000 mls @ 999 mls/hr IV BOLUS ONE Stop: 08/25/21 11:46 Morphine Sulfate (Morphine 2 Mg/1 Ml Inj) 2 mg IV Q4H PRN PRN Reason: Pain, Moderate (4-6) Ondansetron HCl (Ondansetron 4 Mg/2 Ml Inj) 4 mg IV Q8H PRN PRN Reason: Nausea And Vomiting Sodium Chloride (Sodium Chloride 0.9% 10 Ml Flush Syringe) 10 ml IV BID MARCIA Sodium Chloride (Sodium Chloride 0.9% 10 Ml Flush Syringe) 10 ml IV PRN PRN PRN Reason: LINE FLUSH Review of Systems ROS unobtainable: due to endotracheal tube, due to mental status Physical Examination Vital signs: Vital Signs Pulse BP Pulse Ox 84 78/43 100 08/24/21 11:55 08/24/21 11:55 08/24/21 11:55 General appearance: comatose ENT: other (orally intubated) Neck: supple Ascultation: Bilateral: clear Percussion: Right: not dull Cardiovascular: regular rate and rhythm Gastrointestinal: normoactive bowel sounds, soft Extremities: no edema unable to assess Results - Laboratory Findings CBC and BMP: 08/25/21 03:53 08/25/21 07:47 ABG ABG pH 7.461 pH Units (7.350-7.450) H 08/25/21 04:52 ABG pCO2 30.0 mm Hg 08/25/21 04:52 ABG pO2 111.0 mm Hg (80.0-90.0) H 08/25/21 04:52 ABG O2 Saturation 98.2 % (95.0-99.0) 08/25/21 04:52 PT/INR, D-dimer PT 15.6 Sec. (12.2-14.9) H 08/24/21 23:55 INR 1.12 (0.87-1.13) 08/24/21 23:55 Abnormal lab findings: Abnormal Labs 08/24/21 08/24/21 08/24/21 14:42 14:42 14:42 WBC 21.5 H Hgb 10.9 L Hct MCV 98 H MCH 26 L MCHC 27 L RDW 17.3 H Seg Neuts % (Manual) 90.0 H Lymphocytes % (Manual) 4.0 L Seg Neutrophils # Man 19.4 H Lymphocytes # (Manual) 0.9 L Basophils # (Manual) 0.2 H PT ABG pH ABG pO2 ABG HCO3 ABG O2 Saturation ABG Base Excess ABG Hemoglobin VBG pH Sodium 122 L Potassium 5.2 H Chloride 77.9 L Carbon Dioxide 8 L* BUN Creatinine 4.7 H Glucose 1219 H* POC Glucose Calcium 7.6 L Phosphorus Magnesium 2.50 H AST 138 H ALT Alkaline Phosphatase 266 H Total Creatine Kinase 1272 H CK-MB (CK-2) 12.4 H Troponin T 0.215 H* Total Protein 5.8 L Albumin 2.9 L Triglycerides 196 H Cholesterol 209 H HDL Cholesterol 61 H TSH 08/24/21 08/24/21 08/24/21 14:42 14:42 16:04 WBC Hgb Hct MCV MCH MCHC RDW Seg Neuts % (Manual) Lymphocytes % (Manual) Seg Neutrophils # Man Lymphocytes # (Manual) Basophils # (Manual) PT ABG pH 7.128 L* ABG pO2 301.3 H ABG HCO3 10.8 L ABG O2 Saturation 99.7 H ABG Base Excess -17.2 L ABG Hemoglobin 11.8 L VBG pH 7.037 L* Sodium Potassium Chloride Carbon Dioxide BUN Creatinine Glucose POC Glucose Calcium Phosphorus Magnesium AST ALT Alkaline Phosphatase Total Creatine Kinase CK-MB (CK-2) Troponin T Total Protein Albumin Triglycerides Cholesterol HDL Cholesterol TSH 12.910 H 08/24/21 08/24/21 08/24/21 16:07 16:07 18:33 WBC Hgb Hct MCV MCH MCHC RDW Seg Neuts % (Manual) Lymphocytes % (Manual) Seg Neutrophils # Man Lymphocytes # (Manual) Basophils # (Manual) PT ABG pH ABG pO2 ABG HCO3 ABG O2 Saturation ABG Base Excess ABG Hemoglobin VBG pH Sodium 126 L Potassium 5.1 H Chloride 79.2 L Carbon Dioxide 9 L* BUN 21 H Creatinine 5.0 H Glucose 1217 H* POC Glucose > 600 H Calcium 7.9 L Phosphorus 9.20 H Magnesium AST ALT Alkaline Phosphatase Total Creatine Kinase CK-MB (CK-2) Troponin T Total Protein Albumin Triglycerides Cholesterol HDL Cholesterol TSH 08/24/21 08/24/21 08/24/21 19:20 19:20 22:40 WBC Hgb Hct MCV MCH MCHC RDW Seg Neuts % (Manual) Lymphocytes % (Manual) Seg Neutrophils # Man Lymphocytes # (Manual) Basophils # (Manual) PT 15.0 H ABG pH ABG pO2 ABG HCO3 ABG O2 Saturation ABG Base Excess ABG Hemoglobin VBG pH Sodium 121 L Potassium Chloride 79.4 L Carbon Dioxide 13 L BUN 22 H Creatinine 4.9 H Glucose 1138 H* POC Glucose > 600 H Calcium 7.7 L Phosphorus Magnesium AST ALT Alkaline Phosphatase Total Creatine Kinase CK-MB (CK-2) Troponin T Total Protein Albumin Triglycerides Cholesterol HDL Cholesterol TSH 08/24/21 08/24/21 08/24/21 23:55 23:55 23:55 WBC Hgb Hct MCV MCH MCHC RDW Seg Neuts % (Manual) Lymphocytes % (Manual) Seg Neutrophils # Man Lymphocytes # (Manual) Basophils # (Manual) PT 15.6 H ABG pH ABG pO2 ABG HCO3 ABG O2 Saturation ABG Base Excess ABG Hemoglobin VBG pH Sodium 125 L Potassium 3.2 L D Chloride 85.2 L Carbon Dioxide 17 L BUN 22 H Creatinine 5.0 H Glucose 938 H* 925 H* POC Glucose Calcium 7.7 L Phosphorus Magnesium AST ALT Alkaline Phosphatase Total Creatine Kinase 5689 H CK-MB (CK-2) 27.1 H Troponin T 0.347 H* D Total Protein Albumin Triglycerides Cholesterol HDL Cholesterol TSH 08/25/21 08/25/21 08/25/21 02:18 03:53 03:53 WBC 11.4 H Hgb 10.3 L Hct 32.7 L D MCV MCH 27 L MCHC 31 L RDW 16.7 H Seg Neuts % (Manual) 87.0 H Lymphocytes % (Manual) 9.0 L Seg Neutrophils # Man 9.9 H Lymphocytes # (Manual) 1.0 L Basophils # (Manual) PT ABG pH ABG pO2 ABG HCO3 ABG O2 Saturation ABG Base Excess ABG Hemoglobin VBG pH Sodium 132 L D Potassium 2.9 L* Chloride 89.0 L Carbon Dioxide 18 L BUN 24 H Creatinine 5.3 H Glucose 803 H* POC Glucose > 600 H Calcium 7.8 L Phosphorus Magnesium AST 190 H ALT 64 H Alkaline Phosphatase 197 H Total Creatine Kinase CK-MB (CK-2) Troponin T Total Protein 4.9 L Albumin 2.7 L Triglycerides Cholesterol HDL Cholesterol TSH 08/25/21 08/25/21 08/25/21 03:53 04:52 07:47 WBC Hgb Hct MCV MCH MCHC RDW Seg Neuts % (Manual) Lymphocytes % (Manual) Seg Neutrophils # Man Lymphocytes # (Manual) Basophils # (Manual) PT ABG pH 7.461 H ABG pO2 111.0 H ABG HCO3 ABG O2 Saturation ABG Base Excess -2.2 L ABG Hemoglobin 10.2 L VBG pH Sodium 130 L Potassium 2.5 L* Chloride 90.8 L Carbon Dioxide 20 L BUN 24 H Creatinine 5.3 H Glucose 662 H* POC Glucose Calcium 7.9 L Phosphorus Magnesium AST ALT Alkaline Phosphatase Total Creatine Kinase 7840 H CK-MB (CK-2) 33.5 H Troponin T 0.356 H* Total Protein Albumin Triglycerides Cholesterol HDL Cholesterol TSH 08/25/21 08/25/21 08/25/21 07:59 09:35 10:44 WBC Hgb Hct MCV MCH MCHC RDW Seg Neuts % (Manual) Lymphocytes % (Manual) Seg Neutrophils # Man Lymphocytes # (Manual) Basophils # (Manual) PT ABG pH ABG pO2 ABG HCO3 ABG O2 Saturation ABG Base Excess ABG Hemoglobin VBG pH Sodium Potassium Chloride Carbon Dioxide BUN Creatinine Glucose POC Glucose 551 H 477 H 419 H Calcium Phosphorus Magnesium AST ALT Alkaline Phosphatase Total Creatine Kinase CK-MB (CK-2) Troponin T Total Protein Albumin Triglycerides Cholesterol HDL Cholesterol TSH - Diagnostic Findings Chest x-ray: image reviewed Assessment and Plan 31 y/o male with out of hospital cardiac arrest ROSC, then multiple in house arrest now unresponsive on vent, minimal settings. 1. Repeat CT of head tomorrow 2. No sedatives 3. HD per renal 4. Send UDS Very guarded to poor prognosis given prolonged downtime. CCT 31 minutes.
[2021-08-25] MEDS: NACL 0.45%/KCL 20 MEQ 20 MEQ/1,000 ML BAG IV SCH ×3 (13:43→21:57)
[2021-08-25 14:01] LABS: Amphetamine Screen,Urine Negative; Benzodiazepines Screen,Urine Negative; Cannabinoid Screen,Urine Negative; Cocaine Screen,Urine Negative; Methadone Screen,Urine Negative; Opiate Screen,Urine Negative
[2021-08-25 15:06] LABS: Calcium 7.2 mg/dL (8.4-10.2)
[2021-08-25] MEDS: INSULIN REGULAR, HUMAN 100 UNITS in SODIUM CHLORIDE 0.9% 99 ML IV SCH (15:25)
[2021-08-25] MEDS: MIDODRINE 5 MG TAB PO SCH (15:26)
--- NOTE | 2021-08-25 15:39 | Consultation ---
History of Present Illness Consult date: 08/25/21 Requesting physician: YARED ZULUAGA Consult reason: cardiac arrest History of present illness: Pt is a 31-year-old male, previously unknown to our practice, who presented via EMS after being found unresponsive. Pt was reportedly witnessed walking out of his room, at which time he displayed quick jerking motions and collapsed. Upon initial evaluation by EMS, pt was noted to be in asystole (no tele strips available for review). ACLS protocols were subsequently initiated. Per documentation, pt received 3 rounds of epi, 1 round of sodium bicarb, and defib x 1. ROSC was achieved prior to arrival at [facility]. Total downtime is unknown. According to ER documentation, pt became pulseless two additional times after arrival. ROSC achieved s/p 1 round of CPR each time. Pt is now intubated and was started on Levo and dopamine gtts. He is notably unresponsive and is not on sedation. Echo 03/2021 - LVEF 55%, unable to assess LV diastolic fxn, normal RV systolic fxn, no valvular abnormalities, small pericardial effusion without evidence of tamponade. Past History Past Medical History: diabetes, dialysis, ESRD, hypertension, hyperlipidemia Past Surgical History: denies: valve replacement, CABG, PTCA Social history: denies: smoking, alcohol abuse Family history: diabetes, hypertension Medications and Allergies Allergies Allergy/AdvReac Type Severity Reaction Status Date / Time codeine Allergy Unknown Unknown Verified 08/24/21 16:01 Active Meds: Active Medications Acetaminophen (Acetaminophen 325 Mg Tab) 650 mg PO Q4H PRN PRN Reason: Pain MILD(1-3)/Fever >100.5/MENG Heparin Sodium (Porcine) (Heparin 5,000 Unit/1 Ml Vial) 5,000 unit SUB-Q Q12HR MARCIA Last Admin: 08/25/21 10:10 Dose: 5,000 unit Hydromorphone HCl (Hydromorphone 1 Mg/1 Ml Inj) 0.5 mg IV Q3H PRN PRN Reason: Pain , Severe (7-10) NORepinephrine/NS 8 MG-250 ML (Norepinephrine/Ns 8 Mg-250 Ml (Double Conc)) 8 mg in 250 mls @ 11.25 mls/hr IV TITRATE MARCIA; Protocol Last Titration: 08/25/21 15:13 Dose: 4 mcg/min, 7.5 mls/hr Dopamine HCl/Dextrose (Dopamine 800 Mg/D5w 250ml) 800 mg in 250 mls @ 2.296 mls/hr IV TITR ONE; Protocol Stop: 08/29/21 03:50 Last Titration: 08/24/21 17:43 Dose: Infused Insulin Human Regular 100 (units/ Sodium Chloride) 100 mls @ 8 mls/hr IV TITR MARCIA; Protocol Last Admin: 08/25/21 15:25 Dose: 8 units/hr, 8 mls/hr Potassium Chloride/Sodium Chloride (Ns 0.45/Kcl 20meq) 20 meq in 1,000 mls @ 250 mls/hr IV DIRECT MARCIA Last Admin: 08/25/21 13:43 Dose: 250 mls/hr Midodrine (Midodrine 5 Mg Tab) 10 mg PO TID@0800,1200,1600 [facility] Last Admin: 08/25/21 15:26 Dose: 10 mg Morphine Sulfate (Morphine 2 Mg/1 Ml Inj) 2 mg IV Q4H PRN PRN Reason: Pain, Moderate (4-6) Ondansetron HCl (Ondansetron 4 Mg/2 Ml Inj) 4 mg IV Q8H PRN PRN Reason: Nausea And Vomiting Sodium Chloride (Sodium Chloride 0.9% 10 Ml Flush Syringe) 10 ml IV BID [facility] Last Admin: 08/25/21 14:14 Dose: 10 ml Sodium Chloride (Sodium Chloride 0.9% 10 Ml Flush Syringe) 10 ml IV PRN PRN PRN Reason: LINE FLUSH Review of Systems ROS unobtainable: due to endotracheal tube, due to mental status Physical Examination Vital Signs Pulse BP Pulse Ox 84 78/43 100 08/24/21 11:55 08/24/21 11:55 08/24/21 11:55 Results 08/26/21 05:22 08/26/21 04:36 Cardiac Enzymes 08/24/21 08/25/21 08/25/21 Range/Units 23:55 03:53 03:53 AST 190 H (5-40) units/L CK-MB (CK-2) 27.1 H 33.5 H (0.0-4.0) ng/mL Coagulation 08/24/21 08/24/21 Range/Units 19:20 23:55 PT 15.0 H 15.6 H (12.2-14.9) Sec. INR 1.06 1.12 (0.87-1.13) APTT 28.6 29.2 (24.2-36.6) Sec. Lipids 08/24/21 Range/Units 14:42 Triglycerides 196 H (2-149) mg/dL Cholesterol 209 H (50-199) mg/dL HDL Cholesterol 61 H (40-59) mg/dL Cholesterol/HDL Ratio 3.42 % CBC 08/25/21 Range/Units 03:53 WBC 11.4 H (4.5-11.0) K/mm3 RBC 3.75 (3.65-5.03) M/mm3 Hgb 10.3 L (11.8-15.2) gm/dl Hct 32.7 L D (35.5-45.6) % Plt Count 192 (140-440) K/mm3 Comprehensive Metabolic Panel 08/24/21 08/24/21 08/24/21 Range/Units 14:42 16:07 19:20 Sodium 126 L 121 L (137-145) mmol/L Potassium 5.1 H 4.7 (3.6-5.0) mmol/L Chloride 79.2 L 79.4 L (98-107) mmol/L Carbon Dioxide 9 L* 13 L (22-30) mmol/L BUN 21 H 22 H (9-20) mg/dL Creatinine 5.0 H 4.9 H (0.8-1.3) mg/dL Glucose 1219 H* 1217 H* 1138 H* (75-100) mg/dL Calcium 7.9 L 7.7 L (8.4-10.2) mg/dL AST (5-40) units/L ALT (7-56) units/L Alkaline Phosphatase (35-129) units/L Total Protein (6.3-8.2) g/dL Albumin (3.9-5) g/dL 08/24/21 08/24/21 08/25/21 Range/Units 23:55 23:55 03:53 Sodium 125 L 132 L D (137-145) mmol/L Potassium 3.2 L D 2.9 L* (3.6-5.0) mmol/L Chloride 85.2 L 89.0 L (98-107) mmol/L Carbon Dioxide 17 L 18 L (22-30) mmol/L BUN 22 H 24 H (9-20) mg/dL Creatinine 5.0 H 5.3 H (0.8-1.3) mg/dL Glucose 938 H* 925 H* 803 H* (75-100) mg/dL Calcium 7.7 L 7.8 L (8.4-10.2) mg/dL AST 190 H (5-40) units/L ALT 64 H (7-56) units/L Alkaline Phosphatase 197 H (35-129) units/L Total Protein 4.9 L (6.3-8.2) g/dL Albumin 2.7 L (3.9-5) g/dL 08/25/21 08/25/21 Range/Units 07:47 Unknown Sodium 130 L 135 L (137-145) mmol/L Potassium 2.5 L* 4.2 D (3.6-5.0) mmol/L Chloride 90.8 L 96.8 L (98-107) mmol/L Carbon Dioxide 20 L 18 L (22-30) mmol/L BUN 24 H 23 H (9-20) mg/dL Creatinine 5.3 H 5.4 H (0.8-1.3) mg/dL Glucose 662 H* 437 H (75-100) mg/dL Calcium 7.9 L 7.2 L (8.4-10.2) mg/dL AST (5-40) units/L ALT (7-56) units/L Alkaline Phosphatase (35-129) units/L Total Protein (6.3-8.2) g/dL Albumin (3.9-5) g/dL - Imaging and Cardiology Echo: pending, report reviewed EKG: report reviewed, image reviewed EKG interpretations - Telemetry EKG Rhythm: Sinus Rhythm - EKG Sinus rhythms and dysrhythmias: sinus rhythm Repolarization changes or abnormalities: ST or T wave suggestive of ischemia (inferior, anterolateral) Assessment and Plan Echo pending. Check D-dimer. Recommend anticoagulation with heparin gtt. Guarded prognosis. Await repeat head CT tomorrow. Pt seen in conjunction with Dr. Villarreal, who agrees with the assessment and plan of care. - Patient Problems (1) COVID-19 Current Visit: Yes Status: Acute (2) Cardiac arrest Current Visit: Yes Status: Acute (3) Type 2 myocardial infarction Current Visit: Yes Status: Acute (4) Hyperglycemic crisis in diabetes mellitus Current Visit: Yes Status: Acute (5) Acute respiratory failure with hypoxia Current Visit: Yes Status: Acute (6) Shock Current Visit: Yes Status: Acute (7) ESRD on hemodialysis Current Visit: Yes Status: Acute (8) Rhabdomyolysis Current Visit: Yes Status: Acute (9) Elevated LFTs Current Visit: Yes Status: Acute (10) Anemia Current Visit: Yes Status: Acute
[2021-08-25] MEDS ORDERED: HEPARIN 10,000 UNITS/10 ML VIAL IV PRN (17:11)
[2021-08-25] MEDS ORDERED: LACTATED RINGERS 1,000 ML IV ONE (17:46)
[2021-08-25] MEDS ORDERED: HEPARIN/ 0.45% NACL DRIP 25,000 UNIT/500 ML BAG IV SCH (18:00)
[2021-08-25 18:27] LABS: INR 1.05 (0.87-1.13)
[2021-08-25 18:28] LABS: Partial Thromboplastin Time 27.8 Sec. (24.2-36.6)
[2021-08-25] MEDS ORDERED: LACTATED RINGERS 1000 ML IV SOLN IV SCH (19:00)
[2021-08-25] MEDS ORDERED: VASOPRESSIN 20 UNIT in SODIUM CHLORIDE 0.9% 100 ML IV SCH (23:00)
[2021-08-25] MEDS: D5W/0.45% NACL/KCL 20 MEQ 20 MEQ/1,000 ML BAG IV SCH (23:01)
[2021-08-26] MEDS: NORepinephrine/NS 8 MG-250 ML 8 MG/250 ML INFUS..BTL IV SCH ×3 (00:48→13:15)
[2021-08-26 00:55] LABS: Albumin 1.8 g/dL (3.9-5); Calcium 7.4 mg/dL (8.4-10.2)
[2021-08-26] MEDS: D5W/0.45% NACL/KCL 20 MEQ 20 MEQ/1,000 ML BAG IV SCH (03:38)
[2021-08-26 05:03] LABS: Calcium 7.5 mg/dL (8.4-10.2)
[2021-08-26 05:18] LABS: Hemoglobin TNR gm/dl (11.8-15.2); Red Blood Count TNR M/mm3 (3.65-5.03)
[2021-08-26 05:19] LABS: Hematocrit TNR % (35.5-45.6); Mean Corpuscular HGB Conc TNR % (32-34); Mean Corpuscular Volume TNR fl (84-94); Mean Platelet Volume TNR fl (6-12); Platelet Count TNR K/mm3 (140-440); Red Cell Distribution Width TNR % (13.2-15.2)
[2021-08-26 06:02] LABS: Hematocrit 47.4 % (35.5-45.6); Mean Corpuscular HGB Conc 32 % (32-34); Mean Corpuscular Volume 85 fl (84-94); Platelet Count 205 K/mm3 (140-440); Red Blood Count 5.57 M/mm3 (3.65-5.03); Red Cell Distribution Width 18.1 % (13.2-15.2)
[2021-08-26 06:07] LABS: ABG Base Excess -4.4 mmol/L (-2.0-3.0); ABG HCO3 18.6 mmol/L (20.0-26.0); ABG Methemoglobin 0.5 % (0.0-1.5); ABG Oxygen Saturation 97.2 % (95.0-99.0); ABG PCO2 29.5 mm Hg; ABG PH 7.419 pH Units (7.350-7.450); ABG PO2 90.5 mm Hg (80.0-90.0)
[2021-08-26] MEDS ORDERED: DEXTROSE 50% IN WATER (25GM) 50 ML SYRINGE IV PRN (07:17)
[2021-08-26] MEDS ORDERED: DEXTROSE 10% *Hypoglycemia IV PRN (07:28)
[2021-08-26] MEDS ORDERED: SODIUM CHLORIDE 0.9% 1000 ML 1,000 ML ONE (07:33)
[2021-08-26] MEDS: MIDODRINE 5 MG TAB PO SCH ×3 (08:30→15:31)
[2021-08-26] MEDS: INSULIN REGULAR, HUMAN 100 UNITS/1 ML SUB-Q SCH ×2 (08:32→17:28)
[2021-08-26] MEDS: INSULIN NPH/REGULAR 70/30 INJ SUB-Q SCH ×2 (08:33→17:26)
--- NOTE | 2021-08-26 09:53 | XRay Report ---
CHEST 1 VIEW 08/26/2021 8:36 AM INDICATION / CLINICAL INFORMATION: pneumonia. COMPARISON: 08/24/2021 FINDINGS: SUPPORT DEVICES: NG tube has been placed with tip in body of stomach. ET tube and right IJ dialysis c atheter are unchanged in position. HEART / MEDIASTINUM: Stable cardiomegaly LUNGS / PLEURA: Mild streaky bilateral parenchymal disease, unchanged No pneumothorax. ADDITIONAL FINDINGS: No significant additional findings. IMPRESSION: 1. Stable bilateral pneumonia Signer Name: Yvan Qureshi MD Signed: 08/26/2021 9:48 AM Workstation Name: [id number]
--- NOTE | 2021-08-26 10:01 | Electrocardiograph Report ---
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
[2021-08-26] MEDS ORDERED: SODIUM BICARB 8.4% 50 MEQ/50 ML SYRINGE IV ONE (12:00)
[2021-08-26] MEDS ORDERED: EPINEPHrine 1 MG/10 ML SYRINGE ONE (12:00)
--- NOTE | 2021-08-26 13:22 | Progress Note ---
Assessment and Plan 31 y/o male with out of hospital cardiac arrest ROSC, then multiple in house arrest now unresponsive on vent, minimal settings. 08/26/21: Will check SVO2, if low consider inotropic support. Needs to be drawn from [facility]. UDS is negative. Will get Head CT tomorrow if more stable. Could be sepsis. WIll give abx. Guarded prognosis. 1. Repeat CT of head tomorrow 2. No sedatives 3. HD per renal 4. Send UDS Very guarded to poor prognosis given prolonged downtime. CCT 31 minutes. Subjective Date of service: 08/26/21 Interval history: Remains hypotensive. Still cold as well. Objective Vital Signs - 12hr 08/26/21 08/26/21 08/26/21 01:20 01:30 01:40 Temperature Pulse Rate 123 H 123 H 135 H Respiratory 20 20 20 Rate Blood Pressure 95/58 89/55 89/55 O2 Sat by Pulse Oximetry 08/26/21 08/26/21 08/26/21 01:50 02:00 02:10 Temperature Pulse Rate 125 H 123 H 122 H Respiratory 20 20 20 Rate Blood Pressure 89/57 97/59 97/59 O2 Sat by Pulse Oximetry 08/26/21 08/26/21 08/26/21 02:14 02:20 02:30 Temperature Pulse Rate 120 H 121 H 120 H Respiratory 20 20 Rate Blood Pressure 106/63 86/59 O2 Sat by Pulse Oximetry 08/26/21 08/26/21 08/26/21 02:40 02:50 03:00 Temperature Pulse Rate 136 H 124 H 123 H Respiratory 20 20 20 Rate Blood Pressure 86/59 96/58 96/58 O2 Sat by Pulse Oximetry 08/26/21 08/26/21 08/26/21 03:10 03:16 03:20 Temperature 99 F Pulse Rate 121 H 120 H Respiratory 20 20 Rate Blood Pressure 120/70 87/42 O2 Sat by Pulse Oximetry 08/26/21 08/26/21 08/26/21 03:30 03:40 03:50 Temperature Pulse Rate 140 H 119 H 118 H Respiratory 19 20 20 Rate Blood Pressure 100/70 100/70 79/47 O2 Sat by Pulse Oximetry 08/26/21 08/26/21 08/26/21 04:00 04:10 04:20 Temperature Pulse Rate 120 H 121 H 121 H Respiratory 20 20 20 Rate Blood Pressure 88/38 75/41 111/79 O2 Sat by Pulse 100 Oximetry 08/26/21 08/26/21 08/26/21 04:30 04:40 04:50 Temperature Pulse Rate 121 H 118 H 120 H Respiratory 20 20 20 Rate Blood Pressure 112/74 112/74 88/38 O2 Sat by Pulse Oximetry 08/26/21 08/26/21 08/26/21 05:00 05:10 05:20 Temperature Pulse Rate 120 H 120 H 118 H Respiratory 20 20 20 Rate Blood Pressure 106/79 106/79 108/76 O2 Sat by Pulse Oximetry 08/26/21 08/26/21 08/26/21 05:30 05:40 05:50 Temperature Pulse Rate 119 H 119 H 119 H Respiratory 20 20 20 Rate Blood Pressure 108/76 106/78 106/78 O2 Sat by Pulse Oximetry 08/26/21 08/26/21 08/26/21 06:00 06:10 06:19 Temperature 98.8 F Pulse Rate 119 H 121 H 118 H Respiratory 20 20 Rate Blood Pressure 106/78 106/78 O2 Sat by Pulse Oximetry 08/26/21 08/26/21 08/26/21 06:20 06:30 06:40 Temperature Pulse Rate 118 H 118 H 123 H Respiratory 20 20 20 Rate Blood Pressure 101/61 101/61 63/32 O2 Sat by Pulse 97 Oximetry 08/26/21 08/26/21 08/26/21 06:50 06:58 07:00 Temperature 98.6 F Pulse Rate 118 H 126 H Respiratory 20 20 Rate Blood Pressure 63/32 94/61 O2 Sat by Pulse 95 Oximetry 08/26/21 08/26/21 08/26/21 07:10 07:20 07:30 Temperature Pulse Rate 114 H 115 H 114 H Respiratory 20 20 20 Rate Blood Pressure 94/61 117/79 121/87 O2 Sat by Pulse 98 98 Oximetry 08/26/21 08/26/21 08/26/21 07:40 07:50 08:00 Temperature 97.7 F Pulse Rate 109 H 108 H 107 H Respiratory 20 20 20 Rate Blood Pressure 121/87 100/67 102/72 O2 Sat by Pulse 93 93 100 Oximetry 08/26/21 08:10 Temperature Pulse Rate 107 H Respiratory 20 Rate Blood Pressure 102/72 O2 Sat by Pulse 92 Oximetry Constitutional: comatose ENT: other (orally intubated) Neck: supple Ascultation: Bilateral: clear Percussion: Right: not dull Cardiovascular: regular rate and rhythm Gastrointestinal: normoactive bowel sounds, soft Extremities: no edema Neurologic: unable to assess CBC and BMP: 08/26/21 05:22 08/26/21 04:36 ABG, PT/INR, D-dimer: ABG ABG pH 7.419 pH Units (7.350-7.450) 08/26/21 05:50 ABG pCO2 29.5 mm Hg 08/26/21 05:50 ABG pO2 90.5 mm Hg (80.0-90.0) H 08/26/21 05:50 ABG O2 Saturation 97.2 % (95.0-99.0) 08/26/21 05:50 PT/INR, D-dimer PT 14.9 Sec. (12.2-14.9) 08/25/21 Unknown INR 1.05 (0.87-1.13) 08/25/21 Unknown D-Dimer 9612.52 ng/mlDDU (0-234) H 08/25/21 Unknown Abnormal lab findings: Abnormal Labs 08/24/21 08/24/21 08/24/21 14:42 14:42 14:42 WBC 21.5 H RBC Hgb 10.9 L Hct MCV 98 H MCH 26 L MCHC 27 L RDW 17.3 H Seg Neuts % (Manual) 90.0 H Lymphocytes % (Manual) 4.0 L Seg Neutrophils # Man 19.4 H Lymphocytes # (Manual) 0.9 L Basophils # (Manual) 0.2 H PT D-Dimer Heparin Anti-Xa Level ABG pH ABG pO2 ABG HCO3 ABG O2 Saturation ABG Base Excess ABG Hemoglobin VBG pH Sodium 122 L Potassium 5.2 H Chloride 77.9 L Carbon Dioxide 8 L* BUN Creatinine 4.7 H Glucose 1219 H* POC Glucose Hemoglobin A1c Calcium 7.6 L Phosphorus Magnesium 2.50 H AST 138 H ALT Alkaline Phosphatase 266 H Total Creatine Kinase 1272 H CK-MB (CK-2) 12.4 H Troponin T 0.215 H* Total Protein 5.8 L Albumin 2.9 L Triglycerides 196 H Cholesterol 209 H HDL Cholesterol 61 H TSH Coronavirus (PCR) 08/24/21 08/24/21 08/24/21 14:42 14:42 16:04 WBC RBC Hgb Hct MCV MCH MCHC RDW Seg Neuts % (Manual) Lymphocytes % (Manual) Seg Neutrophils # Man Lymphocytes # (Manual) Basophils # (Manual) PT D-Dimer Heparin Anti-Xa Level ABG pH 7.128 L* ABG pO2 301.3 H ABG HCO3 10.8 L ABG O2 Saturation 99.7 H ABG Base Excess -17.2 L ABG Hemoglobin 11.8 L VBG pH 7.037 L* Sodium Potassium Chloride Carbon Dioxide BUN Creatinine Glucose POC Glucose Hemoglobin A1c Calcium Phosphorus Magnesium AST ALT Alkaline Phosphatase Total Creatine Kinase CK-MB (CK-2) Troponin T Total Protein Albumin Triglycerides Cholesterol HDL Cholesterol TSH 12.910 H Coronavirus (PCR) 08/24/21 08/24/21 08/24/21 16:07 16:07 18:33 WBC RBC Hgb Hct MCV MCH MCHC RDW Seg Neuts % (Manual) Lymphocytes % (Manual) Seg Neutrophils # Man Lymphocytes # (Manual) Basophils # (Manual) PT D-Dimer Heparin Anti-Xa Level ABG pH ABG pO2 ABG HCO3 ABG O2 Saturation ABG Base Excess ABG Hemoglobin VBG pH Sodium 126 L Potassium 5.1 H Chloride 79.2 L Carbon Dioxide 9 L* BUN 21 H Creatinine 5.0 H Glucose 1217 H* POC Glucose > 600 H Hemoglobin A1c Calcium 7.9 L Phosphorus 9.20 H Magnesium AST ALT Alkaline Phosphatase Total Creatine Kinase CK-MB (CK-2) Troponin T Total Protein Albumin Triglycerides Cholesterol HDL Cholesterol TSH Coronavirus (PCR) 08/24/21 08/24/21 08/24/21 19:20 19:20 22:40 WBC RBC Hgb Hct MCV MCH MCHC RDW Seg Neuts % (Manual) Lymphocytes % (Manual) Seg Neutrophils # Man Lymphocytes # (Manual) Basophils # (Manual) PT 15.0 H D-Dimer Heparin Anti-Xa Level ABG pH ABG pO2 ABG HCO3 ABG O2 Saturation ABG Base Excess ABG Hemoglobin VBG pH Sodium 121 L Potassium Chloride 79.4 L Carbon Dioxide 13 L BUN 22 H Creatinine 4.9 H Glucose 1138 H* POC Glucose > 600 H Hemoglobin A1c Calcium 7.7 L Phosphorus Magnesium AST ALT Alkaline Phosphatase Total Creatine Kinase CK-MB (CK-2) Troponin T Total Protein Albumin Triglycerides Cholesterol HDL Cholesterol TSH Coronavirus (PCR) 08/24/21 08/24/21 08/24/21 23:55 23:55 23:55 WBC RBC Hgb Hct MCV MCH MCHC RDW Seg Neuts % (Manual) Lymphocytes % (Manual) Seg Neutrophils # Man Lymphocytes # (Manual) Basophils # (Manual) PT 15.6 H D-Dimer Heparin Anti-Xa Level ABG pH ABG pO2 ABG HCO3 ABG O2 Saturation ABG Base Excess ABG Hemoglobin VBG pH Sodium 125 L Potassium 3.2 L D Chloride 85.2 L Carbon Dioxide 17 L BUN 22 H Creatinine 5.0 H Glucose 938 H* 925 H* POC Glucose Hemoglobin A1c Calcium 7.7 L Phosphorus Magnesium AST ALT Alkaline Phosphatase Total Creatine Kinase 5689 H CK-MB (CK-2) 27.1 H Troponin T 0.347 H* D Total Protein Albumin Triglycerides Cholesterol HDL Cholesterol TSH Coronavirus (PCR) 08/25/21 08/25/21 08/25/21 02:18 03:53 03:53 WBC 11.4 H RBC Hgb 10.3 L Hct 32.7 L D MCV MCH 27 L MCHC 31 L RDW 16.7 H Seg Neuts % (Manual) 87.0 H Lymphocytes % (Manual) 9.0 L Seg Neutrophils # Man 9.9 H Lymphocytes # (Manual) 1.0 L Basophils # (Manual) PT D-Dimer Heparin Anti-Xa Level ABG pH ABG pO2 ABG HCO3 ABG O2 Saturation ABG Base Excess ABG Hemoglobin VBG pH Sodium 132 L D Potassium 2.9 L* Chloride 89.0 L Carbon Dioxide 18 L BUN 24 H Creatinine 5.3 H Glucose 803 H* POC Glucose > 600 H Hemoglobin A1c Calcium 7.8 L Phosphorus Magnesium AST 190 H ALT 64 H Alkaline Phosphatase 197 H Total Creatine Kinase CK-MB (CK-2) Troponin T Total Protein 4.9 L Albumin 2.7 L Triglycerides Cholesterol HDL Cholesterol TSH Coronavirus (PCR) 08/25/21 08/25/21 08/25/21 03:53 04:52 07:47 WBC RBC Hgb Hct MCV MCH MCHC RDW Seg Neuts % (Manual) Lymphocytes % (Manual) Seg Neutrophils # Man Lymphocytes # (Manual) Basophils # (Manual) PT D-Dimer Heparin Anti-Xa Level ABG pH 7.461 H ABG pO2 111.0 H ABG HCO3 ABG O2 Saturation ABG Base Excess -2.2 L ABG Hemoglobin 10.2 L VBG pH Sodium 130 L Potassium 2.5 L* Chloride 90.8 L Carbon Dioxide 20 L BUN 24 H Creatinine 5.3 H Glucose 662 H* POC Glucose Hemoglobin A1c Calcium 7.9 L Phosphorus Magnesium AST ALT Alkaline Phosphatase Total Creatine Kinase 7840 H CK-MB (CK-2) 33.5 H Troponin T 0.356 H* Total Protein Albumin Triglycerides Cholesterol HDL Cholesterol TSH Coronavirus (PCR) 08/25/21 08/25/21 08/25/21 07:59 09:35 10:03 WBC RBC Hgb Hct MCV MCH MCHC RDW Seg Neuts % (Manual) Lymphocytes % (Manual) Seg Neutrophils # Man Lymphocytes # (Manual) Basophils # (Manual) PT D-Dimer Heparin Anti-Xa Level ABG pH ABG pO2 ABG HCO3 ABG O2 Saturation ABG Base Excess ABG Hemoglobin VBG pH Sodium Potassium Chloride Carbon Dioxide BUN Creatinine Glucose POC Glucose 551 H 477 H Hemoglobin A1c Calcium Phosphorus Magnesium AST ALT Alkaline Phosphatase Total Creatine Kinase CK-MB (CK-2) Troponin T Total Protein Albumin Triglycerides Cholesterol HDL Cholesterol TSH Coronavirus (PCR) Positive A 08/25/21 08/25/21 08/25/21 10:44 11:43 16:23 WBC RBC Hgb Hct MCV MCH MCHC RDW Seg Neuts % (Manual) Lymphocytes % (Manual) Seg Neutrophils # Man Lymphocytes # (Manual) Basophils # (Manual) PT D-Dimer Heparin Anti-Xa Level ABG pH ABG pO2 ABG HCO3 ABG O2 Saturation ABG Base Excess ABG Hemoglobin VBG pH Sodium Potassium Chloride Carbon Dioxide BUN Creatinine Glucose POC Glucose 419 H 401 H 389 H Hemoglobin A1c Calcium Phosphorus Magnesium AST ALT Alkaline Phosphatase Total Creatine Kinase CK-MB (CK-2) Troponin T Total Protein Albumin Triglycerides Cholesterol HDL Cholesterol TSH Coronavirus (PCR) 08/25/21 08/25/21 08/25/21 17:14 18:05 18:55 WBC RBC Hgb Hct MCV MCH MCHC RDW Seg Neuts % (Manual) Lymphocytes % (Manual) Seg Neutrophils # Man Lymphocytes # (Manual) Basophils # (Manual) PT D-Dimer Heparin Anti-Xa Level ABG pH ABG pO2 ABG HCO3 ABG O2 Saturation ABG Base Excess ABG Hemoglobin VBG pH Sodium Potassium Chloride Carbon Dioxide BUN Creatinine Glucose POC Glucose 319 H 241 H 265 H Hemoglobin A1c Calcium Phosphorus Magnesium AST ALT Alkaline Phosphatase Total Creatine Kinase CK-MB (CK-2) Troponin T Total Protein Albumin Triglycerides Cholesterol HDL Cholesterol TSH Coronavirus (PCR) 08/25/21 08/25/21 08/25/21 19:45 19:54 20:58 WBC RBC Hgb Hct MCV MCH MCHC RDW Seg Neuts % (Manual) Lymphocytes % (Manual) Seg Neutrophils # Man Lymphocytes # (Manual) Basophils # (Manual) PT D-Dimer Heparin Anti-Xa Level 0.82 H ABG pH ABG pO2 ABG HCO3 ABG O2 Saturation ABG Base Excess ABG Hemoglobin VBG pH Sodium Potassium Chloride Carbon Dioxide BUN Creatinine Glucose POC Glucose 216 H 222 H Hemoglobin A1c Calcium Phosphorus Magnesium AST ALT Alkaline Phosphatase Total Creatine Kinase CK-MB (CK-2) Troponin T Total Protein Albumin Triglycerides Cholesterol HDL Cholesterol TSH Coronavirus (PCR) 08/25/21 08/25/21 08/25/21 21:55 22:56 Unknown WBC RBC Hgb Hct MCV MCH MCHC RDW Seg Neuts % (Manual) Lymphocytes % (Manual) Seg Neutrophils # Man Lymphocytes # (Manual) Basophils # (Manual) PT D-Dimer Heparin Anti-Xa Level ABG pH ABG pO2 ABG HCO3 ABG O2 Saturation ABG Base Excess ABG Hemoglobin VBG pH Sodium 135 L Potassium Chloride 96.8 L Carbon Dioxide 18 L BUN 23 H Creatinine 5.4 H Glucose 437 H POC Glucose 138 H 108 H Hemoglobin A1c Calcium 7.2 L Phosphorus Magnesium AST ALT Alkaline Phosphatase Total Creatine Kinase CK-MB (CK-2) Troponin T Total Protein Albumin Triglycerides Cholesterol HDL Cholesterol TSH Coronavirus (PCR) 08/25/21 08/26/21 08/26/21 Unknown 00:06 00:06 WBC RBC Hgb Hct MCV MCH MCHC RDW Seg Neuts % (Manual) Lymphocytes % (Manual) Seg Neutrophils # Man Lymphocytes # (Manual) Basophils # (Manual) PT D-Dimer 9612.52 H Heparin Anti-Xa Level 0.19 L ABG pH ABG pO2 ABG HCO3 ABG O2 Saturation ABG Base Excess ABG Hemoglobin VBG pH Sodium 133 L Potassium Chloride Carbon Dioxide 20 L BUN 22 H Creatinine 5.2 H Glucose 131 H POC Glucose Hemoglobin A1c Calcium 7.4 L Phosphorus Magnesium AST 208 H ALT 74 H Alkaline Phosphatase 168 H Total Creatine Kinase CK-MB (CK-2) Troponin T Total Protein 4.9 L Albumin 1.8 L Triglycerides Cholesterol HDL Cholesterol TSH Coronavirus (PCR) 08/26/21 08/26/21 08/26/21 00:15 01:04 02:03 WBC RBC Hgb Hct MCV MCH MCHC RDW Seg Neuts % (Manual) Lymphocytes % (Manual) Seg Neutrophils # Man Lymphocytes # (Manual) Basophils # (Manual) PT D-Dimer Heparin Anti-Xa Level ABG pH ABG pO2 ABG HCO3 ABG O2 Saturation ABG Base Excess ABG Hemoglobin VBG pH Sodium Potassium Chloride Carbon Dioxide BUN Creatinine Glucose POC Glucose 115 H 139 H 133 H Hemoglobin A1c Calcium Phosphorus Magnesium AST ALT Alkaline Phosphatase Total Creatine Kinase CK-MB (CK-2) Troponin T Total Protein Albumin Triglycerides Cholesterol HDL Cholesterol TSH Coronavirus (PCR) 08/26/21 08/26/21 08/26/21 03:04 04:36 05:19 WBC RBC Hgb Hct MCV MCH MCHC RDW Seg Neuts % (Manual) Lymphocytes % (Manual) Seg Neutrophils # Man Lymphocytes # (Manual) Basophils # (Manual) PT D-Dimer Heparin Anti-Xa Level ABG pH ABG pO2 ABG HCO3 ABG O2 Saturation ABG Base Excess ABG Hemoglobin VBG pH Sodium 132 L Potassium Chloride Carbon Dioxide 21 L BUN 23 H Creatinine 5.4 H Glucose 134 H POC Glucose 114 H 149 H Hemoglobin A1c Calcium 7.5 L Phosphorus Magnesium AST ALT Alkaline Phosphatase Total Creatine Kinase CK-MB (CK-2) Troponin T Total Protein Albumin Triglycerides Cholesterol HDL Cholesterol TSH Coronavirus (PCR) 08/26/21 08/26/21 08/26/21 05:22 05:50 08:22 WBC 16.0 H RBC 5.57 H Hgb Hct 47.4 H D MCV MCH 27 L MCHC RDW 18.1 H Seg Neuts % (Manual) Lymphocytes % (Manual) Seg Neutrophils # Man Lymphocytes # (Manual) Basophils # (Manual) PT D-Dimer Heparin Anti-Xa Level 0.23 L ABG pH ABG pO2 90.5 H ABG HCO3 18.6 L ABG O2 Saturation ABG Base Excess -4.4 L ABG Hemoglobin VBG pH Sodium Potassium Chloride Carbon Dioxide BUN Creatinine Glucose POC Glucose Hemoglobin A1c Calcium Phosphorus Magnesium AST ALT Alkaline Phosphatase Total Creatine Kinase CK-MB (CK-2) Troponin T Total Protein Albumin Triglycerides Cholesterol HDL Cholesterol TSH Coronavirus (PCR) 08/26/21 08/26/21 08:22 11:41 WBC RBC Hgb Hct MCV MCH MCHC RDW Seg Neuts % (Manual) Lymphocytes % (Manual) Seg Neutrophils # Man Lymphocytes # (Manual) Basophils # (Manual) PT D-Dimer Heparin Anti-Xa Level ABG pH ABG pO2 ABG HCO3 ABG O2 Saturation ABG Base Excess ABG Hemoglobin VBG pH Sodium Potassium Chloride Carbon Dioxide BUN Creatinine Glucose POC Glucose 122 H Hemoglobin A1c 14.4 H Calcium Phosphorus Magnesium AST ALT Alkaline Phosphatase Total Creatine Kinase CK-MB (CK-2) Troponin T Total Protein Albumin Triglycerides Cholesterol HDL Cholesterol TSH Coronavirus (PCR)
--- NOTE | 2021-08-26 13:50 | Progress Note ---
Assessment and Plan Await echo images - not in computer for interpretation this morning. - Patient Problems (1) COVID-19 Current Visit: Yes Status: Acute (2) Cardiac arrest Current Visit: Yes Status: Acute (3) Acute respiratory failure with hypoxia Current Visit: Yes Status: Acute (4) Sepsis associated hypotension Current Visit: Yes Status: Acute (5) Acute encephalopathy Current Visit: Yes Status: Acute (6) Pneumonia Current Visit: Yes Status: Acute (7) Type 2 myocardial infarction Current Visit: Yes Status: Acute (8) ESRD on hemodialysis Current Visit: Yes Status: Acute (9) Rhabdomyolysis Current Visit: Yes Status: Acute (10) Hyperglycemic crisis in diabetes mellitus Current Visit: Yes Status: Acute (11) Elevated LFTs Current Visit: Yes Status: Acute Subjective Date of service: 08/26/21 Principal diagnosis: Cardiac arrest, sepsis, hypotension Interval history: Remains unresponsive. Objective Vital Signs Last Vital Signs Temp 97.7 F 08/26/21 08:00 Pulse 104 H 08/26/21 13:30 Resp 19 08/26/21 13:30 BP 98/55 08/26/21 13:30 Pulse Ox 91 08/26/21 13:30 - Physical Examination General: Other (unresponsive, intubated.) HEENT: Positive: Normocephaly Neck: Positive: trachea midline Cardiac: Positive: Reg Rate and Rhythm, S1/S2 Lungs: Positive: Rhonchi Neuro: Positive: Other (unresponsive) Abdomen: Positive: Soft, Active Bowel Sounds Skin: Negative: Rash Musculoskeletal: No Fluid Collection Extremities: Absent: edema - Labs and Meds Cardiac Enzymes 08/26/21 Range/Units 00:06 AST 208 H (5-40) units/L Coagulation 08/25/21 Range/Units Unknown PT 14.9 (12.2-14.9) Sec. INR 1.05 (0.87-1.13) APTT 27.8 (24.2-36.6) Sec. CBC 08/26/21 08/26/21 Range/Units 04:36 05:22 WBC TNR 16.0 H RBC TNR 5.57 H Hgb TNR 15.0 D Hct TNR 47.4 H D Plt Count TNR 205 Comprehensive Metabolic Panel 08/25/21 08/25/21 08/26/21 Range/Units 21:50 Unknown 00:06 Sodium 135 L 133 L (137-145) mmol/L Potassium 3.8 4.2 D 3.8 (3.6-5.0) mmol/L Chloride 96.8 L 99.8 (98-107) mmol/L Carbon Dioxide 18 L 20 L (22-30) mmol/L BUN 23 H 22 H (9-20) mg/dL Creatinine 5.4 H 5.2 H (0.8-1.3) mg/dL Glucose 437 H 131 H (75-100) mg/dL Calcium 7.2 L 7.4 L (8.4-10.2) mg/dL AST 208 H (5-40) units/L ALT 74 H (7-56) units/L Alkaline Phosphatase 168 H (35-129) units/L Total Protein 4.9 L (6.3-8.2) g/dL Albumin 1.8 L (3.9-5) g/dL 08/26/21 Range/Units 04:36 Sodium 132 L (137-145) mmol/L Potassium 4.3 (3.6-5.0) mmol/L Chloride 99.5 (98-107) mmol/L Carbon Dioxide 21 L (22-30) mmol/L BUN 23 H (9-20) mg/dL Creatinine 5.4 H (0.8-1.3) mg/dL Glucose 134 H (75-100) mg/dL Calcium 7.5 L (8.4-10.2) mg/dL AST (5-40) units/L ALT (7-56) units/L Alkaline Phosphatase (35-129) units/L Total Protein (6.3-8.2) g/dL Albumin (3.9-5) g/dL - EKG Sinus rhythms and dysrhythmias: sinus rhythm
[2021-08-26 13:59] LABS: ABG Base Excess -4.4 mmol/L (-2.0-3.0); ABG HCO3 22.3 mmol/L (20.0-26.0); ABG Methemoglobin 0.8 % (0.0-1.5); ABG Oxygen Saturation 34.8 % (95.0-99.0); ABG PCO2 47.1 mm Hg; ABG PH 7.293 pH Units (7.350-7.450)
[2021-08-26] MEDS ORDERED: AZITHROMYCIN/NS 500 MG/250 ML 500 MG/250 ML BAG IV SCH (14:00)
[2021-08-26] MEDS ORDERED: cefTRIAXone/NS 1 GM/50 ML 1 GM/50 ML BAG IV SCH (14:00)
--- NOTE | 2021-08-26 14:27 | Event Note ---
<NICOLAS BELLA - Last Filed: 08/26/21 14:26> Date: 08/26/21 Patient suffered a cardiac arrest at 2 PM. ACLS initiated and patient received epinephrine, bicarb and after 2 minutes of CPR patient was noted to have a pulse and an sinus tachycardia with termination of code blue. Patient [place] [phone] called and updated of current events and explained grim prognosis. Explained emergent lines needed to be placed this morning. CCT 15 min not included in daily CCT <YARED ZULUAGA. - Last Filed: 08/27/21 12:13> I saw and evaluated the patient. Discussed with the nurse practitioner and agree with their findings and plan as documented in this note.
[2021-08-26 14:49] LABS: ABG PO2 22.9 mm Hg (80.0-90.0)
--- NOTE | 2021-08-26 15:56 | Consultation ---
History of Present Illness - Reason for Consult Consult date: 08/26/21 end stage renal disease Requesting physician: YARED ZULUAGA - History of Present Illness 31-year-old male with a history of diabetes mellitus, end-stage renal disease on hemodialysis. Patient was brought to the hospital following cardiac arrest. He exited his room and was observed to have quick jerking movement motions and then collapsed. EMS found him to be unresponsive in asystole. He was intubated received 3 rounds of epinephrine, 1 round of bicarb and was defibrillated once for ventricular tachycardia. He subsequently had return of spontaneous respiration. Blood sugar was found to be severely elevated. Patient is now in the ICU on Levophed, dobutamine, dopamine and vasopressin and blood pressure still running about 79/65 mmHg. Am consulted to provide dialysis to manage his fluid and electrolyte abnormalities. Patient is unable to give a history and so my history is reviewed my review of the records. Past History Past Medical History: diabetes, dialysis, ESRD, hypertension, hyperlipidemia Past Surgical History: denies: valve replacement, CABG, PTCA Social history: denies: smoking, alcohol abuse Family history: diabetes, hypertension Medications and Allergies Allergies Allergy/AdvReac Type Severity Reaction Status Date / Time codeine Allergy Unknown Unknown Verified 08/24/21 16:01 Active Meds: Active Medications Acetaminophen (Acetaminophen 325 Mg Tab) 650 mg PO Q4H PRN PRN Reason: Pain MILD(1-3)/Fever >100.5/MENG Dextrose (Dextrose 10% *Hypoglycemia) 0 ml IV PRN PRN PRN Reason: Hypoglycemia Heparin Sodium (Porcine) (Heparin 10,000 Units/10 Ml Vial) 2,400 unit 40 unit /kg (2400 unit) IV Q6H PRN PRN Reason: Anti-Xa Assay < 0.1 units/ml Hydromorphone HCl (Hydromorphone 1 Mg/1 Ml Inj) 0.5 mg IV Q3H PRN PRN Reason: Pain , Severe (7-10) NORepinephrine/NS 8 MG-250 ML (Norepinephrine/Ns 8 Mg-250 Ml (Double Conc)) 8 mg in 250 mls @ 11.25 mls/hr IV TITRATE MARCIA; Protocol Last Titration: 08/26/21 14:45 Dose: 22 mcg/min, 41.25 mls/hr Dopamine HCl/Dextrose (Dopamine 800 Mg/D5w 250ml) 800 mg in 250 mls @ 2.296 mls/hr IV TITR ONE; Protocol Stop: 08/29/21 03:50 Last Titration: 08/24/21 17:43 Dose: Infused Heparin Sodium/Sodium Chloride (Heparin/ 0.45% Nacl-25,000 Unit/500 Ml) 25,000 unit in 500 mls @ 18 mls/hr IV TITR MARCIA; Protocol Last Titration: 08/26/21 09:56 Dose: 1,000 units/hr, 20 mls/hr Vasopressin 20 unit/ Sodium (Chloride) 101 mls @ 9.09 mls/hr IV TITR MARCIA; Protocol Last Admin: 08/26/21 14:29 Dose: 0.03 units/min, 9.09 mls/hr Ceftriaxone Sodium (Rocephin/Ns 1 Gm/50 Ml) 1 gm in 50 mls @ 100 mls/hr IV Q24H MARCIA; Protocol Last Admin: 08/26/21 14:44 Dose: 100 mls/hr Azithromycin (Zithromax/Ns) 500 mg in 250 mls @ 250 mls/hr IV Q24H MARCIA Last Admin: 08/26/21 14:45 Dose: 250 mls/hr Dobutamine HCl/Dextrose (Dobutrex Drip 500mg/D5w 250ml) 500 mg in 250 mls @ 4.575 mls/hr IV DIRECT MARCIA; Protocol Last Admin: 08/26/21 15:13 Dose: 2.5 mcg/kg/min, 4.575 mls/hr Insulin Glargine (Insulin Glargine 100 Units/Ml) 5 units SUB-Q QHS MARCIA Insulin Human Regular (Insulin Regular, Human 100 Units/1 Ml) 0 units SUB-Q Q6H MARCIA; Protocol Last Admin: 08/26/21 08:32 Dose: Not Given Lactated Ringer's (Lactated Ringers 1000 Ml Iv Soln) 1,000 ml IV DIRECT MARCIA Midodrine (Midodrine 5 Mg Tab) 10 mg PO TID@0800,1200,1600 MARCIA Last Admin: 08/26/21 15:31 Dose: 10 mg Morphine Sulfate (Morphine 2 Mg/1 Ml Inj) 2 mg IV Q4H PRN PRN Reason: Pain, Moderate (4-6) Ondansetron HCl (Ondansetron 4 Mg/2 Ml Inj) 4 mg IV Q8H PRN PRN Reason: Nausea And Vomiting Sodium Chloride (Sodium Chloride 0.9% 10 Ml Flush Syringe) 10 ml IV BID MARCIA Last Admin: 08/25/21 20:39 Dose: Not Given Sodium Chloride (Sodium Chloride 0.9% 10 Ml Flush Syringe) 10 ml IV PRN PRN PRN Reason: LINE FLUSH Review of Systems ROS unobtainable: due to endotracheal tube, due to mental status Exam - Vital Signs Vital signs: Vital Signs Pulse BP Pulse Ox 84 78/43 100 08/24/21 11:55 08/24/21 11:55 08/24/21 11:55 - Physical Exam Narrative exam: Patient was not examined at the bedside today due to personal protective equipment preservation during the COVID-19 pandemic Results - Lab Results 08/26/21 05:22 08/26/21 04:36 Most recent lab results ABG pH 7.293 pH Units (7.350-7.450) L 08/26/21 13:46 ABG pCO2 47.1 mm Hg 08/26/21 13:46 ABG pO2 22.9 mm Hg (80.0-90.0) L* 08/26/21 13:46 ABG HCO3 22.3 mmol/L (20.0-26.0) 08/26/21 13:46 ABG O2 Saturation 34.8 % (95.0-99.0) L 08/26/21 13:46 Calcium 7.5 mg/dL (8.4-10.2) L 08/26/21 04:36 Phosphorus 4.00 mg/dL (2.5-4.5) D 08/26/21 04:36 Magnesium 1.80 mg/dL (1.7-2.3) 08/26/21 04:36 Assessment and Plan - Patient Problems (1) Acute respiratory failure with hypoxia Current Visit: Yes Status: Acute Plan to address problem: Continue management by windows [employer] deployment lead/facility practice specialist (2) Cardiac arrest Current Visit: Yes Status: Acute Plan to address problem: Out of hospital cardiac arrest. Suspect cardiomyopathy with hypokalemia. Cardiology has been consulted. Continue ventilator management by pulmonary/critical care medicine (3) DKA (diabetic ketoacidosis) Current Visit: Yes Status: Acute Plan to address problem: Blood sugar management by primary attending (4) ESRD on hemodialysis Current Visit: Yes Status: Acute Plan to address problem: Patient reportedly on hemodialysis. Hemodynamic instability precludes dialysis now. Will reevaluate in the morning. Prognosis is poor. Discussed with ICU team (5) Hypokalemia Current Visit: Yes Status: Acute Plan to address problem: Improved. Follow-up potassium level and magnesium (6) Hyponatremia Current Visit: Yes Status: Acute Plan to address problem: Improved. Follow-up (7) Anoxic brain injury Current Visit: Yes Status: Suspected Plan to address problem: Monitor neurologic status (8) COVID-19 Current Visit: Yes Status: Acute Plan to address problem: Management of COVID-19 per primary attending (9) Shock Current Visit: Yes Status: Acute Plan to address problem: Sepsis and/or cardiogenic shock. Patient still hypotensive on 4 vasopressors. Titrate vasopressors to maintain mean arterial pressure more than 65 mmHg.
[2021-08-26] MEDS ORDERED: DOBUTamine/D5W 500 MG/250 ML 500 MG/250 ML BAG IV SCH (16:00)
--- NOTE | 2021-08-26 16:46 | Progress Note ---
<SHAYNENICOLASTristan - Last Filed: 08/26/21 17:00> Assessment and Plan Assessment and plan: This is a 31-year-old male with ESRD on HD and DM admitted with DKA, s/p cardiac arrest and acute hypoxic respiratory failure Neuro: Acute metabolic encephalopathy, ?ISIS -No sedatives on board -GCS 3 T -aspiration/seizure precautions -CT head on admit shows no acute intracranial abnormalities Cardiac: S/p cardiac arrest (OSH, 08/24 in the ED, 08/26 in the ICU),? Cardiogenic shock, H/o htn -Cardiology consulted, appreciate recommendations -Blood pressure monitoring per protocol -Via A-line -Vasopressor support with Levophed, vasopressin -MAP goal greater than 65 -Echocardiogram pending -Initiated on dopamine post svo2 -Midodrine 3 times daily Respiratory: Acute hypoxic respiratory failure -CCM consulted, appreciate recommendations -A.m. vent settings: AC rate 20, tidal volume 450, PEEP six, FiO2 30% -See RT notes for titration -A.m. ABG and CXR noted -VAP bundle -SPO2 monitoring GI: Protein calorie malnutrition, transaminitis -24 hours positive 2124 -PPI -NTR consulted for tube feedings -On hold now due to vasopressor support -BR: Senokot -Trend LFTs : ESRD on HD, [place] acidosis, hyponatremia -Nephrology consulted, appreciate recommendations -HD per nephrology if stable -Strict intake and output -Renally dose medications -Avoid nephrotoxic medications -Daily weights ID: COVID-19 infection -Infectious disease consulted, appreciate recommendation -Antibiotic therapy with azithromycin and Rocephin -Contact and droplet precautions -COVID-19 PCR positive -Trend COVID-19 inflammatory markers -f/u blood culture -Monitor WBC and temperature curve Endo: S/p DKA, elevated TSH, h/o DM -S/p insulin drip -Avoid hypoglycemia -SSI -Accu-Cheks q 6 hr -Long-acting insulin, titrate as needed -Hemoglobin A1c 14.4 Heme: Leukocytosis, elevated D-dimer -Heparin drip per cardiology -Trend CBC -Transfuse hemoglobin less than 7 -Monitor for signs of bleeding -SCDs to BLE while in bed The high probability of a clinically significant, sudden or life threatening deterioration of the [multi] system(s) required my full and direct attention, intervention and personal management. The aggregate critical care time was [90] minutes. This time is in addition to time spent performing reported procedures but includes the following: [x] Data Review and interpretation [x] Patient assessment and monitoring of vital signs [x] Documentation [x] Medication orders and management Disposition Plan: icu Total Time Spent with Patient (Minutes): 90 History Interval history: This is a 31-year-old male with ESRD on HD (newly started a couple months ago per family) and DM who presented on 08/24 s/p outside hospital cardiac arrest via EMS who stated the patient exited his room and was witnessed to have quick jerking motions followed by collapse to the ground. On EMS arrival patient was found to be asystolic and ACLS was initiated and he was intubated. EMS reported three rounds of epinephrine, one sodium bicarb and defibrillation x1 for V. tach and ROSC on arrival to the emergency department. While in the emergency department patient suffered another cardiac arrest. Patient was admitted to the hospitalist service with consults to [facility] for acute hypoxic respiratory failure, s/p cardiac arrest and hyper consistent with DKA. NOK: Rupal Castillo [phone] (spouse) Hospital course: 08/25: Requiring MV support. mental status of concern after suspected prolonged down time. Last BG in 400's. D/w RN to aggressively replace K, once K > 3.3, can restart IV insulin. Volume depleted, 3 L NS ordered. Continue 1/2NS w/K infusion. Spoke with Rupal Castillo at length of clinical progress and plan for today. Nephrology was consulted. 08/26: Patient suffered another cardiac arrest this afternoon and family was updated, A-line and femoral CVL placed in the a.m., remains on Levophed and now vasopressin. Will start dobutamine per CCM. Nephrology consult completed, will likely hold HD today. Awaiting echocardiogram. CT head tomorrow and CAP coverage. Hospitalist Physical - Constitutional Vitals: Temp Pulse Resp BP Pulse Ox 97.7 F 107 H 19 92/50 97 08/26/21 08:00 08/26/21 16:15 08/26/21 13:30 08/26/21 16:15 08/26/21 16:15 General appearance: Present: well-nourished, other (Unresponsive, GCS 3 T) - EENT ENT: dentition normal - Neck Neck: Absent: masses or JVD, cervical LAD - Respiratory Respiratory effort: normal Respiratory: bilateral: CTA - Cardiovascular Rhythm: regular Heart Sounds: Present: S1 & S2. Absent: systolic murmur, diastolic murmur - Extremities Extremities: no ischemia, pulses intact, pulses symmetrical, No edema, normal temperature, normal color Peripheral Pulses: within normal limits - Abdominal General gastrointestinal: soft, non-tender, non-distended, normal bowel sounds, hypoactive bowel sounds - Integumentary Integumentary: Present: dry (Cold), clammy - Psychiatric Psychiatric: other - Neurologic Neurologic: other (GCS 3, no response to painful or verbal stimuli) - Allied Health Allied health notes reviewed: nursing, RT HEART Score - HEART Score Troponin: Troponin T 0.370 ng/mL (0.00-0.029) H* 08/26/21 11:20 Results - Labs CBC & Chem 7: 08/26/21 05:22 08/26/21 04:36 Labs: Laboratory Last Values WBC 16.0 K/mm3 (4.5-11.0) H 08/26/21 05:22 RBC 5.57 M/mm3 (3.65-5.03) H 08/26/21 05:22 Hgb 15.0 gm/dl (11.8-15.2) D 08/26/21 05:22 Hct 47.4 % (35.5-45.6) H D 08/26/21 05:22 MCV 85 fl (84-94) 08/26/21 05:22 MCH 27 pg (28-32) L 08/26/21 05:22 MCHC 32 % (32-34) 08/26/21 05:22 RDW 18.1 % (13.2-15.2) H 08/26/21 05:22 Plt Count 205 K/mm3 (140-440) 08/26/21 05:22 Add Manual Diff Complete 08/25/21 03:53 Total Counted 100 08/25/21 03:53 Seg Neutrophils % Cork Insulator 08/25/21 03:53 Seg Neuts % (Manual) 87.0 % (40.0-70.0) H 08/25/21 03:53 Band Neutrophils % 0 % 08/25/21 03:53 Lymphocytes % (Manual) 9.0 % (13.4-35.0) L 08/25/21 03:53 Reactive Lymphs % (Man) 0 % 08/25/21 03:53 Monocytes % (Manual) 4.0 % (0.0-7.3) 08/25/21 03:53 Eosinophils % (Manual) 0 % (0.0-4.3) 08/25/21 03:53 Basophils % (Manual) 0 % (0.0-1.8) 08/25/21 03:53 Metamyelocytes % 0 % 08/25/21 03:53 Myelocytes % 0 % 08/25/21 03:53 Promyelocytes % 0 % 08/25/21 03:53 Blast Cells % 0 % 08/25/21 03:53 Nucleated RBC % Not Reportable 08/25/21 03:53 Seg Neutrophils # Man 9.9 K/mm3 (1.8-7.7) H 08/25/21 03:53 Band Neutrophils # 0.0 K/mm3 08/25/21 03:53 Lymphocytes # (Manual) 1.0 K/mm3 (1.2-5.4) L 08/25/21 03:53 Abs React Lymphs (Man) 0.0 K/mm3 08/25/21 03:53 Monocytes # (Manual) 0.5 K/mm3 (0.0-0.8) 08/25/21 03:53 Eosinophils # (Manual) 0.0 K/mm3 (0.0-0.4) 08/25/21 03:53 Basophils # (Manual) 0.0 K/mm3 (0.0-0.1) 08/25/21 03:53 Metamyelocytes # 0.0 K/mm3 08/25/21 03:53 Myelocytes # 0.0 K/mm3 08/25/21 03:53 Promyelocytes # 0.0 K/mm3 08/25/21 03:53 Blast Cells # 0.0 K/mm3 08/25/21 03:53 WBC Morphology Not Reportable 08/25/21 03:53 Hypersegmented Neuts Not Reportable 08/25/21 03:53 Hyposegmented Neuts Not Reportable 08/25/21 03:53 Hypogranular Neuts Not Reportable 08/25/21 03:53 Smudge Cells Not Reportable 08/25/21 03:53 Toxic Granulation Not Reportable 08/25/21 03:53 Toxic Vacuolation Not Reportable 08/25/21 03:53 Dohle Bodies Not Reportable 08/25/21 03:53 Pelger-Huet Anomaly Not Reportable 08/25/21 03:53 Joseluis Rods Not Reportable 08/25/21 03:53 Platelet Estimate Consistent w auto 08/25/21 03:53 Clumped Platelets Not Reportable 08/25/21 03:53 Plt Clumps, EDTA Not Reportable 08/25/21 03:53 Large Platelets Not Reportable 08/25/21 03:53 Giant Platelets Not Reportable 08/25/21 03:53 Platelet Satelliting Not Reportable 08/25/21 03:53 Plt Morphology Comment Not Reportable 08/25/21 03:53 RBC Morphology Not Reportable 08/25/21 03:53 Dimorphic RBCs Not Reportable 08/25/21 03:53 Polychromasia Not Reportable 08/25/21 03:53 Hypochromasia Not Reportable 08/25/21 03:53 Poikilocytosis Not Reportable 08/25/21 03:53 Anisocytosis 1+ 08/25/21 03:53 Microcytosis Not Reportable 08/25/21 03:53 Macrocytosis Not Reportable 08/25/21 03:53 Spherocytes Not Reportable 08/25/21 03:53 Pappenheimer Bodies Not Reportable 08/25/21 03:53 Sickle Cells Not Reportable 08/25/21 03:53 Target Cells Not Reportable 08/25/21 03:53 Tear Drop Cells Not Reportable 08/25/21 03:53 Ovalocytes Not Reportable 08/25/21 03:53 Helmet Cells Not Reportable 08/25/21 03:53 [place]ole-Fajardo Bodies Not Reportable 08/25/21 03:53 [place] Rings Not Reportable 08/25/21 03:53 [place] Cells Not Reportable 08/25/21 03:53 Bite Cells Not Reportable 08/25/21 03:53 Crenated Cell Not Reportable 08/25/21 03:53 Elliptocytes Not Reportable 08/25/21 03:53 Acanthocytes (Spur) Not Reportable 08/25/21 03:53 Rouleaux Not Reportable 08/25/21 03:53 Hemoglobin C Crystals Not Reportable 08/25/21 03:53 Schistocytes Not Reportable 08/25/21 03:53 Malaria parasites Not Reportable 08/25/21 03:53 Marv Bodies Not Reportable 08/25/21 03:53 Hem Pathologist Commnt No 08/25/21 03:53 PT 14.9 Sec. (12.2-14.9) 08/25/21 Unknown INR 1.05 (0.87-1.13) 08/25/21 Unknown APTT 27.8 Sec. (24.2-36.6) 08/25/21 Unknown D-Dimer 9612.52 ng/mlDDU (0-234) H 08/25/21 Unknown Heparin Anti-Xa Level 0.55 U.I./ml (0.3-0.7) 08/26/21 16:26 ABG pH 7.293 pH Units (7.350-7.450) L 08/26/21 13:46 ABG pCO2 47.1 mm Hg 08/26/21 13:46 ABG pO2 22.9 mm Hg (80.0-90.0) L* 08/26/21 13:46 ABG HCO3 22.3 mmol/L (20.0-26.0) 08/26/21 13:46 ABG O2 Saturation 34.8 % (95.0-99.0) L 08/26/21 13:46 ABG O2 Content 6.9 (0.0-44) 08/26/21 13:46 ABG Base Excess -4.4 mmol/L (-2.0-3.0) L 08/26/21 13:46 ABG Hemoglobin 14.4 gm/dl (14.0-18.0) 08/26/21 13:46 ABG Carboxyhemoglobin 1.3 % (0.0-5.0) 08/26/21 13:46 ABG Methemoglobin 0.8 % (0.0-1.5) 08/26/21 13:46 VBG pH 7.037 (7.320-7.420) L* 08/24/21 14:42 Oxyhemoglobin 34.0 % (95.0-99.0) L 08/26/21 13:46 FiO2 21 % 08/26/21 13:46 Sodium 132 mmol/L (137-145) L 08/26/21 04:36 Potassium 4.3 mmol/L (3.6-5.0) 08/26/21 04:36 Chloride 99.5 mmol/L (98-107) 08/26/21 04:36 Carbon Dioxide 21 mmol/L (22-30) L 08/26/21 04:36 Anion Gap 16 mmol/L 08/26/21 04:36 BUN 23 mg/dL (9-20) H 08/26/21 04:36 Creatinine 5.4 mg/dL (0.8-1.3) H 08/26/21 04:36 Estimated GFR 15 ml/min 08/26/21 04:36 BUN/Creatinine Ratio 4 % 08/26/21 04:36 Glucose 134 mg/dL (75-100) H 08/26/21 04:36 POC Glucose 122 mg/dL (70-105) H 08/26/21 11:41 Hemoglobin A1c 14.4 % (4-6) H 08/26/21 08:22 Calcium 7.5 mg/dL (8.4-10.2) L 08/26/21 04:36 Phosphorus 4.00 mg/dL (2.5-4.5) D 08/26/21 04:36 Magnesium 1.80 mg/dL (1.7-2.3) 08/26/21 04:36 Total Bilirubin 0.40 mg/dL (0.1-1.2) 08/26/21 00:06 AST 208 units/L (5-40) H 08/26/21 00:06 ALT 74 units/L (7-56) H 08/26/21 00:06 Alkaline Phosphatase 168 units/L (35-129) H 08/26/21 00:06 Total Creatine Kinase 7840 units/L (55-170) H 08/25/21 03:53 CK-MB (CK-2) 33.5 ng/mL (0.0-4.0) H 08/25/21 03:53 CK-MB (CK-2) Rel Index 0.4 (0-4) 08/25/21 03:53 Troponin T 0.370 ng/mL (0.00-0.029) H* 08/26/21 11:20 Total Protein 4.9 g/dL (6.3-8.2) L 08/26/21 00:06 Albumin 1.8 g/dL (3.9-5) L 08/26/21 00:06 Albumin/Globulin Ratio 0.6 % 08/26/21 00:06 Triglycerides 196 mg/dL (2-149) H 08/24/21 14:42 Cholesterol 209 mg/dL (50-199) H 08/24/21 14:42 LDL Cholesterol Direct 118 mg/dL (50-130) 08/24/21 14:42 HDL Cholesterol 61 mg/dL (40-59) H 08/24/21 14:42 Cholesterol/HDL Ratio 3.42 % 08/24/21 14:42 Procalcitonin 19.78 ng/mL (<0.15) 08/26/21 11:20 TSH 12.910 mlU/mL (0.270-4.200) H 08/24/21 14:42 Free T4 1.35 ng/dL (0.76-1.46) 08/24/21 14:42 Urine Opiates Screen Negative 08/25/21 11:35 Urine Methadone Screen Negative 08/25/21 11:35 Ur Barbiturates Screen Negative 08/25/21 11:35 Ur Phencyclidine Scrn Negative 08/25/21 11:35 Ur Amphetamines Screen Negative 08/25/21 11:35 U Benzodiazepines Scrn Negative 08/25/21 11:35 Urine Cocaine Screen Negative 08/25/21 11:35 U Marijuana (THC) Screen Negative 08/25/21 11:35 Drugs of Abuse Note Disclamer 08/25/21 11:35 Coronavirus (PCR) Positive (Negative) A 08/25/21 10:03 Blood Type O POSITIVE 08/25/21 00:07 Antibody Screen Negative 08/25/21 00:07 Nicole/IV: Voiding Method Indwelling Catheter Active Medications - Current Medications Current Medications: Generic Name Dose Route Start Last Admin Trade Name Freq PRN Reason Stop Dose Admin Acetaminophen 650 mg 08/24/21 19:41 Acetaminophen 325 Mg Tab PO Q4H PRN Pain MILD(1-3)/Fever >100.5/MENG Dextrose 0 ml 08/26/21 07:28 Dextrose 10% *Hypoglycemia IV PRN PRN Hypoglycemia Heparin Sodium (Porcine) 2,400 unit 08/25/21 17:11 Heparin 10,000 Units/10 Ml Vial 40 unit/kg (2400 unit) IV Q6H PRN Anti-Xa Assay < 0.1 units/ml NORepinephrine/NS 8 MG-250 ML 8 mg in 250 mls @ 11.25 mls/hr 08/24/21 14:00 08/26/21 14:45 Norepinephrine/Ns 8 Mg-250 Ml (Double Conc) IV 22 mcg/min TITRATE MARCIA 41.25 mls/hr Titration Protocol 6 MCG/MIN Dopamine HCl/Dextrose 800 mg in 250 mls @ 2.296 mls/hr 08/24/21 14:57 08/24/21 17:43 Dopamine 800 Mg/D5w 250ml IV 08/29/21 03:50 Infused TITR ONE Titration Protocol 2 MCG/KG/MIN Heparin Sodium/Sodium Chloride 25,000 unit in 500 mls @ 18 mls/hr 08/25/21 18:00 08/26/21 09:56 Heparin/ 0.45% Nacl-25,000 Unit/500 Ml IV 1,000 units/hr TITR MARCIA 20 mls/hr Titration Protocol 900 UNITS/HR Vasopressin 20 unit/ Sodium 101 mls @ 9.09 mls/hr 08/25/21 23:00 08/26/21 14:29 Chloride IV 0.03 units/min TITR MARCIA 9.09 mls/hr Administration Protocol 0.03 UNITS/MIN Ceftriaxone Sodium 1 gm in 50 mls @ 100 mls/hr 08/26/21 14:00 08/26/21 14:44 Rocephin/Ns 1 Gm/50 Ml IV 100 mls/hr Q24H MARCIA Administration Protocol Azithromycin 500 mg in 250 mls @ 250 mls/hr 08/26/21 14:00 08/26/21 14:45 Zithromax/Ns IV 250 mls/hr Q24H MARCIA Administration Dobutamine HCl/Dextrose 500 mg in 250 mls @ 4.575 mls/hr 08/26/21 16:00 08/26/21 15:13 Dobutrex Drip 500mg/D5w 250ml IV 2.5 mcg/kg/min DIRECT MARCIA 4.575 mls/hr Administration Protocol 2.5 MCG/KG/MIN Insulin Glargine 5 units 08/27/21 22:00 Insulin Glargine 100 Units/Ml SUB-Q QHS MARCIA Insulin Human Regular 0 units 02/13/22 08:00 08/26/21 08:32 Insulin Regular, Human 100 Units/1 Ml SUB-Q Not Given Q6H [facility] Protocol Lactated Ringer's 1,000 ml 08/25/21 19:00 Lactated Ringers 1000 Ml Iv Soln IV DIRECT MARCIA Midodrine 10 mg 08/25/21 16:00 08/26/21 15:31 Midodrine 5 Mg Tab PO 10 mg TID@0800,1200,1600 [facility] Administration Ondansetron HCl 4 mg 08/24/21 19:41 Ondansetron 4 Mg/2 Ml Inj IV Q8H PRN Nausea And Vomiting Sodium Chloride 10 ml 08/24/21 22:00 08/25/21 20:39 Sodium Chloride 0.9% 10 Ml Flush Syringe IV Not Given BID MARCIA Sodium Chloride 10 ml 08/24/21 19:41 Sodium Chloride 0.9% 10 Ml Flush Syringe IV PRN PRN LINE FLUSH Nutrition/Malnutrition Assess - Dietary Evaluation Nutrition/Malnutrition Findings: Nutrition Notes Start: 08/26/21 13:28 Freq: Status: Active Protocol: Document 08/26/21 13:28 SATYA (Rec: 08/26/21 13:35 [facility] [id number]) Nutrition Notes Need for Assessment generated from: MD Order Initial or Follow up Assessment Current Diagnosis CKD (stage V CKD),Diabetes, Hypertension,Respiratory Failure Other Pertinent Diagnosis s/p cardiac arrest, DKA Current Diet No diet ordered Labs/Tests A1C 14.4 Na 132 BUN 23 Cr 5.4 Pertinent Medications Dopamine gtt, Heparin gtt, Levophed gtt, Vasopressin gtt Height 5 ft 3 in Weight 61 kg [place] Body Weight (kg) 56.36 BMI 23.8 Weight Status Appropriate Subjective/Other Information RD consulted for TF. Pt is on vent support. Burn Absent Trauma Absent Minimum of two criteria No Fluid Accumulation Moderate to Severe (severe) #1 Nutrition Diagnosis Inadequate oral intake [facility] As Evidenced by Signs and Symptoms pt NPO Is patient on ventilator? Yes Is Patient Ambulatory and/or Out of Bed No REE-([facility]-confined to bed) 1760.304 Calculation Used for Recommendations [facility] Additional Notes Pro needs >1.2g/kg: >73g/day Fluid needs 1-1.5L/day Nutrition Intervention Nutrition Support: Nepro at 40ml/hr with 170ml water flush q4h. Kcal 1,728 Protein (gm) 78 Carbohydrates (gm) 155 Fat (gm) 92 Fluid (mL) 698 Fiber (gm) 12 Goal #1 TF tolerance Goal #2 TF to meet at least 75% energy and pro needs Anticipated Discharge Needs: Continue TF if unable to advance diet Follow-Up By: 08/28/21 Additional Comments F/U: new TF, vent status, pressor support <YARED ZULUAGA - Last Filed: 08/27/21 12:07> Assessment and Plan Assessment and plan: I saw and evaluated the patient. Discussed with the nurse practitioner and agree with their findings and plan as documented in this note. - Patient Problems (1) Cardiac arrest Status: Acute (2) Acute respiratory failure with hypoxia Status: Acute (3) COVID-19 Status: Acute (4) Acute encephalopathy Status: Acute (5) DKA (diabetic ketoacidosis) Status: Acute (6) ESRD on hemodialysis Status: Acute (7) Hypokalemia Status: Acute (8) Hyponatremia Status: Acute (9) Metabolic acidosis Status: Acute (10) Pneumonia Status: Acute (11) Rhabdomyolysis Status: Acute (12) Sepsis associated hypotension Status: Acute (13) Anoxic brain injury Status: Suspected Hospitalist Physical - Constitutional Vitals: Temp Pulse Resp BP Pulse Ox 97.7 F 25 L 0 L 103/33 100 08/26/21 19:50 08/26/21 19:51 08/26/21 21:11 08/26/21 21:11 08/26/21 19:21 HEART Score - HEART Score Troponin: Troponin T 0.370 ng/mL (0.00-0.029) H* 08/26/21 11:20 Results - Labs CBC & Chem 7: 08/26/21 05:22 08/26/21 04:36 Labs: Laboratory Last Values WBC 16.0 K/mm3 (4.5-11.0) H 08/26/21 05:22 RBC 5.57 M/mm3 (3.65-5.03) H 08/26/21 05:22 Hgb 15.0 gm/dl (11.8-15.2) D 08/26/21 05:22 Hct 47.4 % (35.5-45.6) H D 08/26/21 05:22 MCV 85 fl (84-94) 08/26/21 05:22 MCH 27 pg (28-32) L 08/26/21 05:22 MCHC 32 % (32-34) 08/26/21 05:22 RDW 18.1 % (13.2-15.2) H 08/26/21 05:22 Plt Count 205 K/mm3 (140-440) 08/26/21 05:22 Add Manual Diff Complete 08/25/21 03:53 Total Counted 100 08/25/21 03:53 Seg Neutrophils % Cork Insulator 08/25/21 03:53 Seg Neuts % (Manual) 87.0 % (40.0-70.0) H 08/25/21 03:53 Band Neutrophils % 0 % 08/25/21 03:53 Lymphocytes % (Manual) 9.0 % (13.4-35.0) L 08/25/21 03:53 Reactive Lymphs % (Man) 0 % 08/25/21 03:53 Monocytes % (Manual) 4.0 % (0.0-7.3) 08/25/21 03:53 Eosinophils % (Manual) 0 % (0.0-4.3) 08/25/21 03:53 Basophils % (Manual) 0 % (0.0-1.8) 08/25/21 03:53 Metamyelocytes % 0 % 08/25/21 03:53 Myelocytes % 0 % 08/25/21 03:53 Promyelocytes % 0 % 08/25/21 03:53 Blast Cells % 0 % 08/25/21 03:53 Nucleated RBC % Not Reportable 08/25/21 03:53 Seg Neutrophils # Man 9.9 K/mm3 (1.8-7.7) H 08/25/21 03:53 Band Neutrophils # 0.0 K/mm3 08/25/21 03:53 Lymphocytes # (Manual) 1.0 K/mm3 (1.2-5.4) L 08/25/21 03:53 Abs React Lymphs (Man) 0.0 K/mm3 08/25/21 03:53 Monocytes # (Manual) 0.5 K/mm3 (0.0-0.8) 08/25/21 03:53 Eosinophils # (Manual) 0.0 K/mm3 (0.0-0.4) 08/25/21 03:53 Basophils # (Manual) 0.0 K/mm3 (0.0-0.1) 08/25/21 03:53 Metamyelocytes # 0.0 K/mm3 08/25/21 03:53 Myelocytes # 0.0 K/mm3 08/25/21 03:53 Promyelocytes # 0.0 K/mm3 08/25/21 03:53 Blast Cells # 0.0 K/mm3 08/25/21 03:53 WBC Morphology Not Reportable 08/25/21 03:53 Hypersegmented Neuts Not Reportable 08/25/21 03:53 Hyposegmented Neuts Not Reportable 08/25/21 03:53 Hypogranular Neuts Not Reportable 08/25/21 03:53 Smudge Cells Not Reportable 08/25/21 03:53 Toxic Granulation Not Reportable 08/25/21 03:53 Toxic Vacuolation Not Reportable 08/25/21 03:53 Dohle Bodies Not Reportable 08/25/21 03:53 Pelger-Huet Anomaly Not Reportable 08/25/21 03:53 Joseluis Rods Not Reportable 08/25/21 03:53 Platelet Estimate Consistent w auto 08/25/21 03:53 Clumped Platelets Not Reportable 08/25/21 03:53 Plt Clumps, EDTA Not Reportable 08/25/21 03:53 Large Platelets Not Reportable 08/25/21 03:53 Giant Platelets Not Reportable 08/25/21 03:53 Platelet Satelliting Not Reportable 08/25/21 03:53 Plt Morphology Comment Not Reportable 08/25/21 03:53 RBC Morphology Not Reportable 08/25/21 03:53 Dimorphic RBCs Not Reportable 08/25/21 03:53 Polychromasia Not Reportable 08/25/21 03:53 Hypochromasia Not Reportable 08/25/21 03:53 Poikilocytosis Not Reportable 08/25/21 03:53 Anisocytosis 1+ 08/25/21 03:53 Microcytosis Not Reportable 08/25/21 03:53 Macrocytosis Not Reportable 08/25/21 03:53 Spherocytes Not Reportable 08/25/21 03:53 Pappenheimer Bodies Not Reportable 08/25/21 03:53 Sickle Cells Not Reportable 08/25/21 03:53 Target Cells Not Reportable 08/25/21 03:53 Tear Drop Cells Not Reportable 08/25/21 03:53 Ovalocytes Not Reportable 08/25/21 03:53 Helmet Cells Not Reportable 08/25/21 03:53 Otoole-Fajardo Bodies Not Reportable 08/25/21 03:53 [place] Rings Not Reportable 08/25/21 03:53 [place] Cells Not Reportable 08/25/21 03:53 Bite Cells Not Reportable 08/25/21 03:53 Crenated Cell Not Reportable 08/25/21 03:53 Elliptocytes Not Reportable 08/25/21 03:53 Acanthocytes (Spur) Not Reportable 08/25/21 03:53 Rouleaux Not Reportable 08/25/21 03:53 Hemoglobin C Crystals Not Reportable 08/25/21 03:53 Schistocytes Not Reportable 08/25/21 03:53 Malaria parasites Not Reportable 08/25/21 03:53 Marv Bodies Not Reportable 08/25/21 03:53 Hem Pathologist Commnt No 08/25/21 03:53 PT 14.9 Sec. (12.2-14.9) 08/25/21 Unknown INR 1.05 (0.87-1.13) 08/25/21 Unknown APTT 27.8 Sec. (24.2-36.6) 08/25/21 Unknown D-Dimer 9612.52 ng/mlDDU (0-234) H 08/25/21 Unknown Heparin Anti-Xa Level 0.55 U.I./ml (0.3-0.7) 08/26/21 16:26 ABG pH 7.293 pH Units (7.350-7.450) L 08/26/21 13:46 ABG pCO2 47.1 mm Hg 08/26/21 13:46 ABG pO2 22.9 mm Hg (80.0-90.0) L* 08/26/21 13:46 ABG HCO3 22.3 mmol/L (20.0-26.0) 08/26/21 13:46 ABG O2 Saturation 34.8 % (95.0-99.0) L 08/26/21 13:46 ABG O2 Content 6.9 (0.0-44) 08/26/21 13:46 ABG Base Excess -4.4 mmol/L (-2.0-3.0) L 08/26/21 13:46 ABG Hemoglobin 14.4 gm/dl (14.0-18.0) 08/26/21 13:46 ABG Carboxyhemoglobin 1.3 % (0.0-5.0) 08/26/21 13:46 ABG Methemoglobin 0.8 % (0.0-1.5) 08/26/21 13:46 VBG pH 7.037 (7.320-7.420) L* 08/24/21 14:42 Oxyhemoglobin 34.0 % (95.0-99.0) L 08/26/21 13:46 FiO2 21 % 08/26/21 13:46 Sodium 132 mmol/L (137-145) L 08/26/21 04:36 Potassium 4.3 mmol/L (3.6-5.0) 08/26/21 04:36 Chloride 99.5 mmol/L (98-107) 08/26/21 04:36 Carbon Dioxide 21 mmol/L (22-30) L 08/26/21 04:36 Anion Gap 16 mmol/L 08/26/21 04:36 BUN 23 mg/dL (9-20) H 08/26/21 04:36 Creatinine 5.4 mg/dL (0.8-1.3) H 08/26/21 04:36 Estimated GFR 15 ml/min 08/26/21 04:36 BUN/Creatinine Ratio 4 % 08/26/21 04:36 Glucose 134 mg/dL (75-100) H 08/26/21 04:36 POC Glucose 192 mg/dL (70-105) H 08/26/21 17:08 Hemoglobin A1c 14.4 % (4-6) H 08/26/21 08:22 Calcium 7.5 mg/dL (8.4-10.2) L 08/26/21 04:36 Phosphorus 4.00 mg/dL (2.5-4.5) D 08/26/21 04:36 Magnesium 1.80 mg/dL (1.7-2.3) 08/26/21 04:36 Total Bilirubin 0.40 mg/dL (0.1-1.2) 08/26/21 00:06 AST 208 units/L (5-40) H 08/26/21 00:06 ALT 74 units/L (7-56) H 08/26/21 00:06 Alkaline Phosphatase 168 units/L (35-129) H 08/26/21 00:06 Total Creatine Kinase 7840 units/L (55-170) H 08/25/21 03:53 CK-MB (CK-2) 33.5 ng/mL (0.0-4.0) H 08/25/21 03:53 CK-MB (CK-2) Rel Index 0.4 (0-4) 08/25/21 03:53 Troponin T 0.370 ng/mL (0.00-0.029) H* 08/26/21 11:20 C-Reactive Protein 19.70 mg/dL (0.00-1.30) H 08/26/21 11:20 Total Protein 4.9 g/dL (6.3-8.2) L 08/26/21 00:06 Albumin 1.8 g/dL (3.9-5) L 08/26/21 00:06 Albumin/Globulin Ratio 0.6 % 08/26/21 00:06 Triglycerides 196 mg/dL (2-149) H 08/24/21 14:42 Cholesterol 209 mg/dL (50-199) H 08/24/21 14:42 LDL Cholesterol Direct 118 mg/dL (50-130) 08/24/21 14:42 HDL Cholesterol 61 mg/dL (40-59) H 08/24/21 14:42 Cholesterol/HDL Ratio 3.42 % 08/24/21 14:42 Procalcitonin 19.78 ng/mL (<0.15) 08/26/21 11:20 TSH 12.910 mlU/mL (0.270-4.200) H 08/24/21 14:42 Free T4 1.35 ng/dL (0.76-1.46) 08/24/21 14:42 Urine Opiates Screen Negative 08/25/21 11:35 Urine Methadone Screen Negative 08/25/21 11:35 Ur Barbiturates Screen Negative 08/25/21 11:35 Ur Phencyclidine Scrn Negative 08/25/21 11:35 Ur Amphetamines Screen Negative 08/25/21 11:35 U Benzodiazepines Scrn Negative 08/25/21 11:35 Urine Cocaine Screen Negative 08/25/21 11:35 U Marijuana (THC) Screen Negative 08/25/21 11:35 Drugs of Abuse Note Disclamer 08/25/21 11:35 Coronavirus (PCR) Positive (Negative) A 08/25/21 10:03 Blood Type O POSITIVE 08/25/21 00:07 Antibody Screen Negative 08/25/21 00:07 Nicole/IV: Voiding Method Indwelling Catheter Nutrition/Malnutrition Assess - Dietary Evaluation Nutrition/Malnutrition Findings: Nutrition Notes Start: 08/26/21 13:28 Freq: Status: Discharge Protocol: Document 08/26/21 13:28 SATYA (Rec: 08/26/21 13:35 SATYA [id number]) Nutrition Notes Need for Assessment generated from: MD Order Initial or Follow up Assessment Current Diagnosis CKD (stage V CKD),Diabetes, Hypertension,Respiratory Failure Other Pertinent Diagnosis s/p cardiac arrest, DKA Current Diet No diet ordered Labs/Tests A1C 14.4 Na 132 BUN 23 Cr 5.4 Pertinent Medications Dopamine gtt, Heparin gtt, Levophed gtt, Vasopressin gtt Height 5 ft 3 in Weight 61 kg [place] Body Weight (kg) 56.36 BMI 23.8 Weight Status Appropriate Subjective/Other Information RD consulted for TF. Pt is on vent support. Burn Absent Trauma Absent Minimum of two criteria No Fluid Accumulation Moderate to Severe (severe) #1 Nutrition Diagnosis Inadequate oral intake Etiology [facility] ventilation As Evidenced by Signs and Symptoms pt NPO Is patient on ventilator? Yes Is Patient Ambulatory and/or Out of Bed No REE-([facility]-confined to bed) 1760.304 Calculation Used for Recommendations [facility] Additional Notes Pro needs >1.2g/kg: >73g/day Fluid needs 1-1.5L/day Nutrition Intervention Nutrition Support: Nepro at 40ml/hr with 170ml water flush q4h. Kcal 1,728 Protein (gm) 78 Carbohydrates (gm) 155 Fat (gm) 92 Fluid (mL) 698 Fiber (gm) 12 Goal #1 TF tolerance Goal #2 TF to meet at least 75% energy and pro needs Anticipated Discharge Needs: Continue TF if unable to advance diet Follow-Up By: 08/28/21 Additional Comments F/U: new TF, vent status, pressor support
--- NOTE | 2021-08-26 16:48 | Procedure Note ---
<NICOLAS BELLA - Last Filed: 08/26/21 16:48> Date of procedure: 08/26/21 Pre-op diagnosis: S/p cardiac arrest, acute hypoxic respiratory failure, ESRD, septic shock Post-op diagnosis: same Procedure: Statement of consent: Emergent procedure, two MD consent, see chart for details Triple-lumen central venous catheter was placed in right femoral vein. Sterile technique was utilized. Patient prepped and placed in trendelenburg position. Area prepped with chlorhexidine/ full body drape utilized. Target vessel visualized with ultrasound. Using seldinger technique, a finder needle was used to puncture target vessel. Wire was threaded through the needle, skin was nicked and needle was withdrawn over wire. A dilator was passed over the wire and tract was dilated. A central venous line catheter was threaded over a wire. All three ports withdrew blood and flushed without difficulty with saline. Line sutured in place, biopatch placed and dressed with tegaderm. Pt tolerated procedure well. VS remained stable throughout procedure. (time spent placing line not included in daily critical care time) CCT: 60 mins Anesthesia: none Surgeon: NICOLAS BELLA Estimated blood loss: minimal Condition: critical Disposition: ICU <YARED ZULUAGA - Last Filed: 08/27/21 12:14> Procedure: I saw and evaluated the patient. Discussed with the nurse practitioner and agree with their findings and plan as documented in this note.
--- NOTE | 2021-08-26 16:53 | Procedure Note ---
<NICOLAS BELLA - Last Filed: 08/26/21 16:49> Date of procedure: 08/26/21 Post-op diagnosis: same Procedure: Bob test completed. Ulnar pulse intact. Left radial teodoro inserted using sterile technique. Area prepped with chlorhexidine. Sterile drape placed Arterial line was placed using ultrasound; catheter advanced without difficulty. Line was sutured and tegaderm dressing applied. A no arm board available. Arterial waveform observed on bedside monitor. Line flushed and zeroed. RN at bedside. Pt tolerated procedure well. VS remained stable throughout procedure. (time spent placing line not included in daily critical care time) CCT: 60 mins i Anesthesia: none Surgeon: NICOLAS BELLA Estimated blood loss: minimal Condition: critical Disposition: ICU <YARED ZULUAGA - Last Filed: 08/27/21 12:14> Procedure: I saw and evaluated the patient. Discussed with the nurse practitioner and agree with their findings and plan as documented in this note.
[2021-08-26] MEDS ORDERED: INSULIN NPH/REGULAR 70/30 INJ SUB-Q SCH (17:00)
--- NOTE | 2021-08-26 20:11 | Death Note ---
Note Date of : 08/26/21 Time of : 08:02 Time Pronounced: 08:02 - Preliminary Cause of (problem) (1) Cardiac arrest Preliminary cause of 31-year-old male with ESRD on HD and DM admitted with DKA, s/p cardiac arrest and acute hypoxic respiratory failure. Called by the nurse that the family father mother and Mrs. Goldsmith wants to withdraw the life support. Case discussed with critical care and the family father mother and . They know the poor prognosis of the patient. They want to withdraw the life support. After a long discussion with them in front of the nurse I ordered for withdrawal of life support and care as per who is the decision maker Mrs. Goldsmith and father and mother. Patient at 8:02 PM on 08/26/2021 due to cardiopulmonary arrest, acute metabolic encephalopathy, history of multiple cardiac arrest. Acute respiratory failure. End-stage renal disease on hemodialysis. Prognosis was poor. Family is in the waiting room and informed. Case discussed with critical care Dr. Macdonald.
[2021-08-26 21:15] VITALS: BP 103/33
--- NOTE | 2021-08-27 08:43 | Death Summary ---
Summary - Providers Date of service: 08/26/21 Consults: 08/24/21 19:41 Consult to Physician [CONS] Routine Comment: Consulting Provider: MARIANA MACDONALD Physician Instructions: Reason For Exam: DKA, cardiac arrest 08/25/21 11:52 Consult to Physician [CONS] Routine Comment: Consulting Provider: DERIC SHARP Physician Instructions: Reason For Exam: cardiac arrest 08/25/21 15:37 Consult to Physician [CONS] Routine Comment: Consulting Provider: ALFA MORALES Physician Instructions: Reason For Exam: esrd 08/26/21 07:17 Consult to Dietitian/Nutrition [CONS] Routine Physician Instructions: Reason For Exam: Reason for Consult: Write/Manage Tube Feeding 08/26/21 08:18 Consult to Physician [CONS] Routine Comment: Consulting Provider: MARIA L SIMMONS Physician Instructions: Reason For Exam: covid 19 Attending: YARED HOYT MD - summary Date of admission: 08/24/21 19:41 Date of : 08/26/21 - Final diagnosis (1) Cardiac arrest Note: Final diagnosis: Interval history: This is a 31-year-old male with ESRD on HD (newly started a couple months ago per family) and DM who presented on 08/24 s/p outside hospital cardiac arrest via EMS who stated the patient exited his room and was witnessed to have quick jerking motions followed by collapse to the ground. On EMS arrival patient was found to be asystolic and ACLS was initiated and he was intubated. EMS reported three rounds of epinephrine, one sodium bicarb and defibrillation x1 for V. tach and ROSC on arrival to the emergency department. While in the emergency department patient suffered another cardiac arrest. Patient was admitted to the hospitalist service with consults to [facility] for acute hypoxic respiratory failure, s/p cardiac arrest and hyper consistent with DKA. NOK: Rupal Castillo [phone] (spouse) Hospital course: 08/25: Requiring MV support. mental status of concern after suspected prolonged down time. Last BG in 400's. D/w RN to aggressively replace K, once K > 3.3, can restart IV insulin. Volume depleted, 3 L NS ordered. Continue 1/2NS w/K infusion. Spoke with Rupal Castillo at length of clinical progress and plan for today. Nephrology was consulted. 08/26: Patient suffered another cardiac arrest this afternoon and family was updated, A-line and femoral CVL placed in the a.m., remains on Levophed and now vasopressin. Will start dobutamine per [facility]. Nephrology consult completed, will likely hold HD today. Awaiting echocardiogram. CT head tomorrow and CAP coverage. 08/26: Telephone call from father and mother to RN. I spoke to mother who wished to visit patient . Updated her on recent cardiac arrest and need for vasopresser support. Spoke about prognosis given this is 3rd recorded cardiac arrest (one OSH, one in ED and one in ICU) and possibility of ISIS from multiple arrests. Informed them we have ordered a CT head for the morning. Mother inquired about visitation. I explained if approved by ICU team they will be allowed to have a window visit with patient given covid status. Dr. Macdonald and Dr. Hoyt made aware. Visit approved and RN asked to call back and inform family of approved visit. Informed of procedure for visit and alerted charge coordinator, Lori. Signed out to Dr. Serra (who was present for last cardiac arrest) re family visit and possible change in code status. 31-year-old male with ESRD on HD and DM admitted with DKA, s/p cardiac arrest and acute hypoxic respiratory failure. Called by the nurse that the family father mother and Mrs. Goldsmith wants to withdraw the life support. Case discussed with critical care and the family father mother and . They know the poor prognosis of the patient. They want to withdraw the life support. After a long discussion with them in front of the nurse I ordered for withdrawal of life support and care as per who is the decision maker Mrs. Goldsmith and father and mother. Patient at 8:02 PM on 08/26/2021 due to cardiopulmonary arrest, acute metabolic encephalopathy, history of multiple cardiac arrest. Acute respiratory failure. End-stage renal disease on hemodialysis. Prognosis was poor. Family is in the waiting room and informed. Case discussed with critical care Dr. Macdonald. (2) Acute respiratory failure with hypoxia Note: Final diagnosis: (3) COVID-19 Note: Final diagnosis: (4) Acute encephalopathy Note: Final diagnosis: (5) DKA (diabetic ketoacidosis) Note: Final diagnosis: (6) ESRD on hemodialysis Note: Final diagnosis: (7) Hypokalemia Note: Final diagnosis: (8) Hyponatremia Note: Final diagnosis: (9) Metabolic acidosis Note: Final diagnosis: (10) Pneumonia Note: Final diagnosis: (11) Rhabdomyolysis Note: Final diagnosis: (12) Sepsis associated hypotension Note: Final diagnosis: (13) Anoxic brain injury Note: Final diagnosis:
[2021-08-27] MEDS ORDERED: INSULIN GLARGINE 100 UNITS/ML SUB-Q SCH (22:00)
== END 2021-08-26 22:00 | DRG 871 ==
LOC: ED 11:57 → CC1 19:41
PROVIDERS: ADMIT Internal Medicine; ATTEND Internal Medicine
PROC: 5A1945Z Respiratory Ventilation, 24-96 Consecutive Hours (ICD-10-PCS; 2021-08-24)
PROC: 0BH17EZ Insertion of Endotracheal Airway into Trachea, Via Natural or Artificial Opening (ICD-10-PCS; 2021-08-24)
PROC: 4A033R1 Measurement of Arterial Saturation, Peripheral, Percutaneous Approach (ICD-10-PCS; 2021-08-25)
PROC: 06HM33Z Insertion of Infusion Device into Right Femoral Vein, Percutaneous Approach (ICD-10-PCS; principal; 2021-08-26)
PROC: B54BZZA Ultrasonography of Right Lower Extremity Veins, Guidance (ICD-10-PCS; 2021-08-26)
PROC: 03HC33Z Insertion of Infusion Device into Left Radial Artery, Percutaneous Approach (ICD-10-PCS; 2021-08-26)
PROC: B34JZZZ Ultrasonography of Left Upper Extremity Arteries (ICD-10-PCS; 2021-08-26)
PROC: 5A12012 Performance of Cardiac Output, Single, Manual (ICD-10-PCS; 2021-08-26)
DX: A41.9 Sepsis, unspecified organism (principal); E11.10 Type 2 diabetes mellitus with ketoacidosis without coma; J96.01 Acute respiratory failure with hypoxia; N18.6 End stage renal disease; U07.1 COVID-19; I21.A1 Myocardial infarction type 2; G93.41 Metabolic encephalopathy; I12.0 Hypertensive chronic kidney disease with stage 5 chronic kidney disease or end stage renal disease; M62.82 Rhabdomyolysis; E87.1 Hypo-osmolality and hyponatremia; E46 Unspecified protein-calorie malnutrition; I46.9 Cardiac arrest, cause unspecified; E11.22 Type 2 diabetes mellitus with diabetic chronic kidney disease; E87.6 Hypokalemia; Z68.23 Body mass index [BMI] 23.0-23.9, adult
CPT/HCPCS: 36415; 36600; 70450; 71045; 80048; 80053; 80061; 80307; 82550; 82553; 82803; 82805; 82947; 82962; 83036; 83735; 84100; 84132; 84145; 84439; 84443; 84484; 85007; 85025; 85027; 85379; 85520; 85610; 85730; 86140; 86850; 86900; 86901; 93005; 93010; 93306; 94002; 94003; G0378; J2354; J3480; J3490; Q0162; Q0177; Q9967; C8929; J0171; J0456; J0696; J1250; J1265; J1644; J1815; J2543; J7030; J7120; U0003